=== PATIENT | female | born 1985 | race Caucasian/White ===

== ENCOUNTER 2021-03-26 16:00 | Inpatient (IN) | payer BC, SELFPAY ==
[2021-03-26] VITALS (13 sets, daily range): BP systolic 87–134; BP diastolic 54–83; PULSE 92–108; RESP 20; TEMP 36.2–36.6; BMI 53.3
--- NOTE | 2021-03-26 16:57 | LDADM ---
This patient, Shirley Mayfield, was admitted to Labor/Delivery/Recovery 102 on 03/26/21 at 16:00. Plans for labor, pain management and were discussed with patient. Patient/family oriented to hospital policies and general routines including ID bracelet, bed and alarms, visiting hours, pain management, procedures, bathroom and other care routines, personal items, smoking policy, room service/diet and guest tray routines, security routines, and visiting hours. Patient/Family are encouraged to report perceived risks to care and to ask questions if they do not understand what they are told or what they should do. See OBIX for further documentation.
[2021-03-26 16:58] LABS: Basophils Percent Auto 0.3 % (0.2-1.2); Eosinophils Absolute Auto 0.1 K/mm3 (0-0.3); Eosinophils Percent Auto 0.8 % (0-4.4); Hematocrit 35.5 % (37.0-47.0); Hemoglobin 11.4 g/dL (12.0-15.0); Immature Granulocyte Absolute 0.04 K/mm3 (0.00-0.031); Immature Granulocyte Percent A 0.4 % (0-0.5); Lymphocytes Absolute Auto 1.48 K/mm3 (0.9-3.2); Lymphocytes Percent Auto 13.6 % (18.3-44.2); Mean Corpuscular HGB Conc 32.1 g/dl (32-36); Mean Corpuscular Hemoglobin 28.1 pg (26-34); Mean Corpuscular Volume 87.7 fl (80-100); Mean Platelet Volume 8.7 fl (7.4-10.4); Monocytes Absolute Auto 0.5 K/mm3 (0.1-0.6); Monocytes Percent Auto 4.4 % (2.6-8.5); Neutrophils Absolute Auto 8.8 K/mm3 (1.3-6.7); Neutrophils Percent Auto 80.5 % (45.5-73.1); Platelet Count Result 347 k/mm3 (150-375); Red Blood Count 4.05 M/mm3 (4.2-5.4); Red Cell Distribution Width 15.4 % (11.5-14.5); White Blood Count 10.9 K/mm3 (4.5-10.0)
[2021-03-26] MEDS: DINOPROSTONE 10 MG VAG INSERT VAGINAL (17:10)
--- NOTE | 2021-03-26 18:34 | WPDANESEPP ---
Anes - Eval Pre Procedure Procedure: Labor epidural Date/Time: 03/26/21 18:34 Surgeon: Dorota Preop Diagnosis: Abd pain with contractions Pre Op Diagnosis: Induction of Labor Patient Data Age: 35 Gender: F Height: 1.73 m Weight: 159 kg Last Vital Signs Temp 97.2 F L 03/26/21 16:46 Pulse 95 03/26/21 18:30 Resp 20 03/26/21 16:46 BP 133/81 03/26/21 18:30 Allergies Allergy/AdvReac Type Severity Reaction Status Date / Time No Known Allergies Allergy Verified 05/19/19 13:39 Home Medications Medication Instructions Recorded Confirmed Type PNV cmb#95-ferrous fumarate-FA 1 tablet PO DAILY 05/19/19 03/26/21 History [] acetaminophen [Mapap 650 mg PO Q6H PRN #30 tablet 06/13/19 03/26/21 Rx (acetaminophen)] Laboratory Tests 03/26/21 03/26/21 03/26/21 16:51 16:51 16:51 WBC 10.9 K/mm3 H K/mm3 (4.5-10.0) RBC 4.05 M/mm3 L M/mm3 (4.2-5.4) Hgb 11.4 g/dL L g/dL (12.0-15.0) Hct 35.5 % L % (37.0-47.0) MCV 87.7 fl fl (80-100) MCH 28.1 pg pg (26-34) MCHC 32.1 g/dl g/dl (32-36) RDW 15.4 % H % (11.5-14.5) Plt Count 347 k/mm3 k/mm3 (150-375) MPV 8.7 fl fl (7.4-10.4) Immature Gran % (Auto) 0.4 % % (0-0.5) Neut % (Auto) 80.5 % H % (45.5-73.1) Lymph % (Auto) 13.6 % L % (18.3-44.2) [place] % (Auto) 4.4 % % (2.6-8.5) Eos % (Auto) 0.8 % % (0-4.4) Baso % (Auto) 0.3 % % (0.2-1.2) Lymph # (Auto) 1.48 K/mm3 K/mm3 (0.9-3.2) [place] # (Auto) 0.5 K/mm3 K/mm3 (0.1-0.6) Eos # (Auto) 0.1 K/mm3 K/mm3 (0-0.3) Baso # (Auto) 0.0 K/mm3 K/mm3 (0.0-0.1) Abs Immat Gran (auto) 0.04 K/mm3 H K/mm3 (0.00-0.031) Absolute Neuts (auto) 8.8 K/mm3 H K/mm3 (1.3-6.7) Absolute Nucleated RBC 0.0 K/mm3 K/mm3 (0.0-0.012) Nucleated RBC % 0.0 % % (0.0-0.2) RPR Pending Blood Type A Positive Antibody Screen Negative Patient hx anesthesia problems: none Family hx anesthesia problems: none Results Review: All pre-operative results and documents have been reviewed as part of the pre-operative evaluation. [facility] Past Medical History Medical History Morbid obesity with BMI of 50.0-59.9, adult and not yet delivered Family History Family History Other Unknown family medical history Social History Social History Smoking status: Never smoker Second hand tobacco smoke exposure: No Substance use: never Gender identity (if verbalized by the patient): Female Spiritual care concerns: No Exam Day of Procedure 03/26/21 18:34 Patient weight: super morbidly obese Airway: Mallampati scale class III Neurological: alert and oriented
[2021-03-27] VITALS (157 sets, daily range): BP systolic 93–143; BP diastolic 30–96; PULSE 37–132; RESP 18; TEMP 36.6–37.2; O2SAT 78–100
[2021-03-27] MEDS: LACTATED RINGERS 1,000 ML 125 ML IV CONT ×3 (05:29→15:21)
[2021-03-27] MEDS: OXYTOCIN 30 UNITS/NS 500 ML 30 UNITS/500 ML BAG IV CONT (05:29)
--- NOTE | 2021-03-27 07:39 | WPDOBADMIT ---
Obstetrics - Admit Note Admission Note: record reviewed. Additions to the history and/or subsequent changes in the physical findings follow. 35 y/o at 40 weeks here for induction of labor. GBS neg. Cervidil overnight, has been withdrawn. AVSS NST reactive TOCO: contractions irregularly ABD soft, nontender, gravid, vertex EXT nontender Cervix 3/50/-2. AROM with clear fluid. IUPC placed A: IUP at term, here for induction of labor. P: Oxytocin. Anticipate .
[2021-03-27 11:03] LABS: Rapid Plasma Reagin Non-Reactive (NonReactive)
--- NOTE | 2021-03-27 11:49 | PM.OBPNLAB ---
Pain Control Date/time seen: 03/27/21 11:49 Comments: Comfortable with epidural. Pelvic Exam Dilation (cm): 5 Effacement (%): 50 station: -1 Contractions Contraction frequency: 3 Status status: Category l Assessment and Plan Comments: Continue labor
--- NOTE | 2021-03-27 16:22 | PM.OBPRVD ---
OB - Delivery Note Procedure Delivery date: 03/27/21 Procedure: Induction of labor with NVSD Induction method: per pitocin protocol and per cervidil protocol Delivery augmentation: rupture of membranes and pitocin Delivery monitor: external FHT, external uterine and internal uterine Route of delivery: Laceration Description: Perineal - 2nd Degree Delivery repair: vicryl (3-0) Specimen: Yes (cord blood) Quantitative Blood Loss (ml): 220 Anesthesia type: Epidural Disposition: PACU Complications: None Narrative: 35 y/o at 40 weeks gestation who presented to the hospital for induction of labor. Cervidil was placed overnight and was withdrawn the next morning. Oxytocin was administered intravenously. Amniotomy was performed with return of clear fluid. She received an epidural for pain control. Her labor progressed and her cervix dilated completely. She pushed with good effort and delivered the 's head to the perineum, followed by the body. The nose and mouth were bulb suctioned. After a delay, the cord was clamped and cut. The infant was handed off the field. Cord blood was collected. The placenta delivered spontaneously and was grossly normal in appearance. The usual 3 vessel cord was noted. A second degree midline perineal laceration was sustained. This was reapproximated using 3 0 Vicryl in the usual layered fashion. Excellent hemostasis resulted as did excellent reapproximation of the normal anatomy. Needle and instrument counts were correct. The patient was taken to recovery room in stable condition. The went to the nursery in stable condition. I was present and scrubbed for the entire delivery. Baby Date of : 03/27/21 Time of : 16:01 Weeks of gestation at delivery: 40 gender: Female Weight (pounds): 9 Weight (ounces): 1 presentation: vertex position: Right Occiput Anterior Placenta delivery description: Spontaneous and Normal Configuration cord vessel description: 3 Vessels and Delayed Cord Clamping score one minute: 8 score five minutes: 9
--- NOTE | 2021-03-27 16:25 | PM.OBDSVD ---
DS: Admitting Diagnosis Discharge Date 03/28/21 Admitting Diagnosis IUP at 40 weeks gestation DS: Discharge Diagnosis Discharge Diagnosis (1) (normal spontaneous vaginal delivery): Code(s): O80 - Encounter for full-term uncomplicated delivery Status: Acute OB - DS: Summary OB Procedures : None OB Procedures Intrapartum: Spontaneous Vag Delivery OB Procedures: : None DS: Data Data Completed and Pending Labs on day of discharge: Labs from last 24 hours 03/26/21 03/26/21 03/26/21 16:51 16:51 16:51 WBC 10.9 H RBC 4.05 L Hgb 11.4 L Hct 35.5 L MCV 87.7 MCH 28.1 MCHC 32.1 RDW 15.4 H Plt Count 347 MPV 8.7 Immature Gran % (Auto) 0.4 Neut % (Auto) 80.5 H Lymph % (Auto) 13.6 L [place] % (Auto) 4.4 Eos % (Auto) 0.8 Baso % (Auto) 0.3 Lymph # (Auto) 1.48 [place] # (Auto) 0.5 Eos # (Auto) 0.1 Baso # (Auto) 0.0 Abs Immat Gran (auto) 0.04 H Absolute Neuts (auto) 8.8 H Absolute Nucleated RBC 0.0 Nucleated RBC % 0.0 RPR Non-reactive Blood Type A Positive Antibody Screen Negative Discharge Plan Discharge Attending physician on discharge: Carlos Raya Discharging Clinician: Carlos Raya Patient Disposition: Home, Self-Care Activity: pelvic rest Diet: regular Discharge Instructions: Call or return if temperature above 100.4? F, increased abdominal pain, increased vaginal bleeding or any new problems. Stand Alone Forms: General Discharge Information Follow-up/Referrals: Carlos Raya MD [Physician] - 6 Weeks Discharge Medications: New ibuprofen 600 mg tablet 600 mg PO Q6H PRN (Reason: cramps) Qty: 30 RF: 0 No Action PNV cmb#95-ferrous fumarate-FA [] 28 mg iron- 800 mcg Tablet 1 tablet PO DAILY RF: 0 acetaminophen [Mapap (acetaminophen)] 325 mg Tablet 650 mg PO Q6H PRN (Reason: Mild Pain (1-3) Or Headache) Qty: 30 RF: 0 Date of admission: 03/26/21 16:00 Primary Care Provider: PHYSICIAN,MODEL TECHNICIAN Admitting Provider: Carlos Raya Attending physician on admission: Carlos Raya Condition: Stable
[2021-03-27] MEDS: OXYTOCIN 30 UNITS/NS 500 ML 30 UNITS/500 ML BAG 125 UNITS IV CONT (16:32)
[2021-03-27] MEDS: WITCH HAZEL 40 PADS 1 PAD TOPICAL (18:30)
[2021-03-27] MEDS: BENZOCAINE 20% AER SPR (*SP) 56 GM CAN 1 SPRAY TOPICAL (18:30)
[2021-03-27] MEDS: IBUPROFEN 600 MG TABLET PO (22:06)
[2021-03-28 00:15] VITALS: BP 140/82; PULSE 98; RESP 18; TEMP 37.1; O2SAT 10
[2021-03-28] MEDS: IBUPROFEN 600 MG TABLET PO ×2 (03:56→10:45)
[2021-03-28 04:21] VITALS: BP 117/66; PULSE 80; RESP 20; TEMP 36.4; O2SAT 97
[2021-03-28 05:17] LABS: Hematocrit 34.1 % (37.0-47.0); Hemoglobin 11.1 g/dL (12.0-15.0)
[2021-03-28 07:50] VITALS: BP 128/76; PULSE 93; RESP 18; TEMP 36.5; O2SAT 98
[2021-03-28 12:20] VITALS: BP 124/76; PULSE 90; RESP 16; TEMP 36.5; O2SAT 99
--- NOTE | 2021-03-28 14:26 | PM.OBPNVD ---
OB - PN: Subj Subjective Date/time seen: 03/28/21 14:26 Narrative: Pain OK. Would like to go home. OB - PN: Obj Data Labs CBC & Chem 7: 03/28/21 03:48 Labs: Laboratory Results - last 24 hr 03/28/21 03:48 Hgb 11.1 L Hct 34.1 L OB - PN A/P Plan Comments: A: PPD#1, doing well. P: Home to f/u 6 weeks. Exam Psych: Other: AVSS ABD soft, nontender, fundus firm EXT nontender
--- NOTE | 2021-03-28 14:34 | WPDANLDPN2 ---
Anes-Prog Note L&D Date/Time: 03/28/21 14:34 Comfortable throughout: labor and delivery Neuraxial method: epidural Epidural/Spinal procedure site: clean & non-tender Neuro status: Neuro function grossly intact. Cardiovascular status: normal Respiratory status: normal Airway patency: baseline Mental status: baseline Post-Op hydration status: normal Vital Signs: Last Vital Signs Temp 36.5 C 03/28/21 12:20 Pulse 90 03/28/21 12:20 Resp 16 03/28/21 12:20 BP 124/76 03/28/21 12:20 Pulse Ox 99 03/28/21 12:20 Pain score (VAS): 0 I/O: Intake & Output 03/27/21 03/28/21 03/28/21 23:59 07:59 15:59 Intake Total 500 Output Total 270 Balance 230 Post-procedural complaints: none Patient feedback: Patient satisfied with anesthetic care.
--- NOTE | 2021-03-28 14:48 | PC.NURSE ---
1350 Breast feeding note; nurse visited with pt and she reports infant nursed about 1300 for 15 minutes. She had cuddled to breast, but baby was dressed in a sleeper and was sleeping. Nurse suggested mother get undressed to a diaper for feedings. Mother reports baby is nursing well; she is latching and breast feeding better than my son did, I think I already feel like my milk is coming in . Parents hoping to go home today after 24 hours; baby's feedings recorded seem appropriate; mother denies nipple pain and reports baby is able to latch easily and maintain latch for feeding. Reviewed importance of q 2-3h and on demand feedings, 8-12 a day; reviewed feeding log for monitoring feedings, and output per day of age, and importance of f/u visit after discharge and manager ambulatory visit by one week of age. Breast feeding pages flagged in pt's Mother Baby Guide for home reference, including LC contact information. Mother reports breast feeding her first baby for 8 months and reported no major problems. She had no questions for nurse at this time, and seemed confident with breast feeding.
--- NOTE | 2021-03-28 16:00 | PC.NURSE ---
Patient received instruction on viewing the discharge video Mother & Baby Care, The First Two Weeks . Patient was given the opportunity and encouraged to ask questions. Patient verbalized understanding of information shared and has been given the mother/baby guide for home reference.
== END 2021-03-28 20:00 | disposition home or self-care (01) | DRG 807 ==
LOC: ANHLDR 03-27 16:28 → ANHOB2 03-27 19:44
PROVIDERS: Admitting Provider Obstetrics & Gynecology; Visit Provider Obstetrics & Gynecology
DX: O99.214 Obesity complicating childbirth (principal); Z37.0 Single live birth; Z3A.40 40 weeks gestation of pregnancy; O70.1 Second degree perineal laceration during delivery; E66.01 Morbid (severe) obesity due to excess calories
CPT/HCPCS: 36415; 85014; 85018; 85025; 86592; 86850; 86900; 86901; A9270; J2590; J2795; J7120

== ENCOUNTER 2023-03-14 08:07 | Outpatient (CLI) | payer OTHER, SELFPAY ==
[2023-03-14 17:19] LABS: Basophils Absolute Auto 0.1 K/mm3 (0.0-0.1); Basophils Percent Auto 0.7 % (0.2-1.2); Eosinophils Absolute Auto 0.2 K/mm3 (0-0.3); Eosinophils Percent Auto 2.2 % (0-4.4); Hematocrit 42.5 % (37.0-47.0); Hemoglobin 13.5 g/dL (12.0-15.0); Immature Granulocyte Absolute 0.04 K/mm3 (0.00-0.031); Immature Granulocyte Percent A 0.4 % (0-0.5); Lymphocytes Absolute Auto 2.42 K/mm3 (0.9-3.2); Lymphocytes Percent Auto 26.7 % (18.3-44.2); Mean Corpuscular HGB Conc 31.8 g/dl (32-36); Mean Corpuscular Hemoglobin 28.5 pg (26-34); Mean Corpuscular Volume 89.9 fl (80-100); Monocytes Absolute Auto 0.5 K/mm3 (0.1-0.6); Monocytes Percent Auto 5.1 % (2.6-8.5); Neutrophils Absolute Auto 5.9 K/mm3 (1.3-6.7); Neutrophils Percent Auto 64.9 % (45.5-73.1); Platelet Count Result 408 k/mm3 (150-375); Red Blood Count 4.73 M/mm3 (4.2-5.4); Red Cell Distribution Width 13.8 % (11.5-14.5); White Blood Count 9.1 K/mm3 (4.5-10.0)
[2023-03-14 18:20] LABS: Thyroid Stimulating Hormone Reflex 0.816 uIU/mL (0.465-4.68)
[2023-03-14 19:19] LABS: Hemoglobin A1C 4.9 % (<5.7)
[2023-03-14 20:23] LABS: Alanine Aminotransferase 24 U/L (6-35); Albumin Level 4.2 g/dL (3.5-5.1); Alkaline Phosphatase 89 U/L (38-126); Anion Gap 7 mmol/L (8-16); Aspartate Amino Transferase 28 U/L (14-36); Bilirubin,Total 0.5 mg/dL (0.2-1.3); Blood Urea Nitrogen 15 mg/dL (7-17); Calcium 8.8 mg/dL (8.4-10.2); Carbon Dioxide 26 mmol/L (22-30); Chloride 105 mmol/L (98-107); Cholesterol 201 mg/dL (0-200); Estimated Glomerular Filt Rate > 60; Glucose 94 mg/dL (65-110); HDL Direct 30 mg/dL; Potassium 4.5 mmol/L (3.4-5.0); Sodium 138 mmol/L (137-145); Triglycerides 156 mg/dL (<150)
[2023-03-14 20:30] LABS: LDL Cholesterol Direct 135 mg/dL
== END 2023-03-14 08:08 | disposition home or self-care (01) ==
LOC: ANHGOSHLAB 08:08
PROVIDERS: Visit Provider Emergency Medicine
DX: E66.01 Morbid (severe) obesity due to excess calories (principal); Z68.42 Body mass index [BMI] 45.0-49.9, adult; Z83.3 Family history of diabetes mellitus
CPT/HCPCS: 36415; 80053; 80061; 83036; 84443; 85025

== ENCOUNTER 2023-11-21 08:19 | Outpatient (CLI) | payer OTHER, SELFPAY ==
[2023-11-21 14:16] LABS: Basophils Absolute Auto 0.1 K/mm3 (0.0-0.1); Basophils Percent Auto 0.6 % (0.2-1.2); Eosinophils Absolute Auto 0.2 K/mm3 (0-0.3); Eosinophils Percent Auto 1.9 % (0-4.4); Hematocrit 45.5 % (37.0-47.0); Hemoglobin 14.7 g/dL (12.0-15.0); Immature Granulocyte Absolute 0.04 K/mm3 (0.00-0.031); Immature Granulocyte Percent A 0.5 % (0-0.5); Lymphocytes Absolute Auto 2.28 K/mm3 (0.9-3.2); Lymphocytes Percent Auto 27.7 % (18.3-44.2); Mean Corpuscular HGB Conc 32.3 g/dl (32-36); Mean Corpuscular Hemoglobin 30.1 pg (26-34); Monocytes Absolute Auto 0.4 K/mm3 (0.1-0.6); Monocytes Percent Auto 5.2 % (2.6-8.5); Neutrophils Absolute Auto 5.3 K/mm3 (1.3-6.7); Neutrophils Percent Auto 64.1 % (45.5-73.1); Platelet Count Result 388 k/mm3 (150-375); Red Blood Count 4.89 M/mm3 (4.2-5.4); Red Cell Distribution Width 13.5 % (11.5-14.5); White Blood Count 8.2 K/mm3 (4.5-10.0)
[2023-11-21 15:35] LABS: Alanine Aminotransferase 20 U/L (6-35); Albumin Level 4.2 g/dL (3.5-5.1); Alkaline Phosphatase 84 U/L (38-126); Anion Gap 6 mmol/L (4-12); Aspartate Amino Transferase 65 U/L (14-36); Bilirubin,Total 0.6 mg/dL (0.2-1.3); Blood Urea Nitrogen 13 mg/dL (7-17); Carbon Dioxide 27 mmol/L (22-30); Chloride 106 mmol/L (98-107); Cholesterol 202 mg/dL (0-200); Estimated Glomerular Filt Rate > 60; Glucose 75 mg/dL (65-110); HDL Direct 35 mg/dL; Potassium 4.5 mmol/L (3.4-5.0); Sodium 139 mmol/L (137-145); Triglycerides 164 mg/dL (<150)
[2023-11-21 15:46] LABS: LDL Cholesterol Direct 132 mg/dL
[2023-11-21 17:11] LABS: Thyroid Stimulating Hormone Reflex 0.581 uIU/mL (0.465-4.68)
== END 2023-11-21 08:20 | disposition home or self-care (01) ==
LOC: ANHGOSHLAB 08:21
PROVIDERS: PCP Emergency Medicine; Visit Provider Emergency Medicine
DX: R63.4 Abnormal weight loss (principal); T50.905A Adverse effect of unspecified drugs, medicaments and biological substances, initial encounter; Z79.899 Other long term (current) drug therapy
CPT/HCPCS: 36415; 80053; 80061; 84443; 85025

== ENCOUNTER 2024-06-13 22:48 | Inpatient (IN) | payer OTHER, SELFPAY ==
--- NOTE | ~2024-06-13 | CT_ITS ---
EXAMINATION: CT abdomen pelvis w con DATE: 06/14/2024 03:04 INDICATION: Left upper quadrant abdominal pain. TECHNIQUE: Computed tomography (CT) of the abdomen and pelvis was performed with 100 mL Omnipaque 350 intravenous contrast. Automated exposure control and iterative reconstruction technique were employe d. The dose-length product was 1276.74 mGy-cm. COMPARISON: None. FINDINGS: The visualized portions of the lung bases demonstrate mild atelectasis. No pleural effusion . The heart size is normal. No pericardial effusion. The liver, gallbladder, spleen, adrenal glands, and right kidney are normal. There are cysts in left kidney measuring up to 8 mm. There is fat strand ing and small volume of fluid around the pancreas, consistent with acute interstitial pancreatitis. T here are no dilated loops of bowel. The appendix is normal. There are no pathologically enlarged lymp h nodes. There is physiologic fluid in the pelvis. There is moderate thoracic spondylosis and mild tamika mbar spondylosis. IMPRESSION: 1. Acute interstitial pancreatitis. Reviewed, dictated and finalized at location A. NING SPECIALIST
[2024-06-13 22:50] VITALS: BP 134/99; PULSE 92; RESP 20; TEMP 36.2; O2SAT 100
--- NOTE | 2024-06-13 23:31 | PC.NURSE ---
pt visitor to the triage desk stating, I am really concerned about my , I need to know at what point I need to scream for help and this is really serious. She is doubled over in a lot of pain right now . x2 RNs placed pt in a wheelchair and brought patient into triage bay to reassess vitals at this time. pt states pain has increased to a 10/10 abdominal pain. pt was able to ambulate into wheelchair after instructed to slowly stand. pt then began vomitting. pt visitor after vitals were reassessed asked if patient coudl drink water. this rn stated not at this time. pt visitor gave patient water after being instructed to wait and was explained the risks of giving water/ food at this time.
[2024-06-13 23:34] VITALS: BP 115/102; PULSE 84; RESP 16; TEMP 36.4; O2SAT 100
[2024-06-14] VITALS (18 sets, daily range): BP systolic 101–131; BP diastolic 28–80; PULSE 64–88; RESP 16–18; TEMP 35.5–36.7; O2SAT 96–100; BMI 38.2
[2024-06-14] MEDS: ONDANSETRON INJ 4 MG/2 ML VIAL IV PUSH (02:25)
[2024-06-14] MEDS: MORPHINE SULFATE (*CRX) 4 MG/ML INJ IV PUSH ×2 (02:25→04:58)
[2024-06-14 02:26] LABS: Basophils Percent Auto 0.3 % (0.2-1.2); Eosinophils Absolute Auto 0.1 K/mm3 (0-0.3); Eosinophils Percent Auto 0.6 % (0-4.4); Hematocrit 45.3 % (37.0-47.0); Hemoglobin 14.8 g/dL (12.0-15.0); Immature Granulocyte Absolute 0.04 K/mm3 (0.00-0.031); Immature Granulocyte Percent A 0.3 % (0-0.5); Lymphocytes Absolute Auto 0.83 K/mm3 (0.9-3.2); Lymphocytes Percent Auto 6.6 % (18.3-44.2); Mean Corpuscular HGB Conc 32.7 g/dl (32-36); Mean Corpuscular Hemoglobin 29.5 pg (26-34); Mean Corpuscular Volume 90.4 fl (80-100); Monocytes Absolute Auto 0.4 K/mm3 (0.1-0.6); Monocytes Percent Auto 3.3 % (2.6-8.5); Neutrophils Absolute Auto 11.1 K/mm3 (1.3-6.7); Neutrophils Percent Auto 88.9 % (45.5-73.1); Platelet Count Result 345 k/mm3 (150-375); Red Blood Count 5.01 M/mm3 (4.2-5.4); Red Cell Distribution Width 13.2 % (11.5-14.5); White Blood Count 12.5 K/mm3 (4.5-10.0)
[2024-06-14] MEDS: SODIUM CHLORIDE 0.9% IV 1,000 ML 999 ML IV CONT ×2 (02:26→04:26)
[2024-06-14 02:38] LABS: Alanine Aminotransferase 532 U/L (6-35); Albumin Level 4.4 g/dL (3.5-5.1); Alkaline Phosphatase 340 U/L (38-126); Anion Gap 6 mmol/L (4-12); Aspartate Amino Transferase 257 U/L (14-36); Bilirubin Direct 1.3 mg/dL (0-0.3); Bilirubin,Total 3.9 mg/dL (0.2-1.3); Blood Urea Nitrogen 11 mg/dL (7-17); Carbon Dioxide 26 mmol/L (22-30); Chloride 106 mmol/L (98-107); Estimated CRCL calculation 126 ml/min; Estimated Glomerular Filt Rate > 60; Glucose 128 mg/dL (65-110); Sodium 138 mmol/L (137-145)
[2024-06-14 02:47] LABS: SPREG INTERNAL CONTROL Positive; Serum Qual hCG Negative
--- NOTE | 2024-06-14 03:56 | ED_ITS ---
HPI - Abdominal Pain General Chief Complaint: Abdominal Pain Stated Complaint: abdominal pain Time Seen by Provider: 06/14/24 01:31 History of Present Illness HPI narrative: Patient is a 38-year-old female who presents to the emergency department this evening complaining of left upper quadrant abdominal pain radiating to her back. Patient admits that she has been on Waygovie since July and has had intermittent and similar symptoms since then. She is currently being tapered off of this medication secondary to these symptoms. Patient admits that the symptoms started on Friday and have been progressively getting worse. Upon arrival to the emergency department patient states that her pain was a 10/10, by the time patient gets back to a room she states that her pain is now manageable. Admits to nausea and vomiting episodes. Denies any dysuria or hematuria, any fevers or chills. No additional symptoms or concerns at this time. Related Data Home Medications ?Medication ?Instructions ?Recorded ?Confirmed ?Last Taken ?Type multivitamin 1 tablet PO DAILY 03/07/23 05/19/24 Unknown History Allergies Allergy/AdvReac Type Severity Reaction Status Date / Time No Known Allergies Allergy Verified 06/13/24 22:49 Review of Systems 2 Review of Systems: All systems are reviewed and are negative unless stated otherwise in the HPI. [facility] Past Medical History Medical History Morbid obesity with BMI of 50.0-59.9, adult and not yet delivered Surgical History Surgical History [place] teeth extracted August 2022 Family History Family History Father Alcoholism Lung cancer Sibling Depression Anxiety Colon polyp Other Unknown family medical history Social History Social History Smoking status: Never smoker Second hand tobacco smoke exposure: No Alcohol intake: current Alcohol use details: social, 2-3 per month Substance use: never Substance use type: does not use Lack of Transportation: No Lack of Food: Never True Current Housing: I Have Housing Concerned About Future Housing: No Difficulty Paying Gas/Electric Bills: No Difficulty Paying for Meds: No Currently Unemployed: No Education: Bachelor's Degree Difficulty w/ Childcare or Family Care: No Gender identity (if verbalized by the patient): Female Spiritual care concerns: No Exam 2 Narrative: General: Alert, awake, afebrile, in no acute distress. HEENT: PERRL, no rhinorrhea, no post nasal drip, oropharynx clear. Neck: Trachea midline, no JVD, no lymphadenopathy. Cardiovascular: Regular rate and rhythm, no murmurs, rubs or gallops, no peripheral edema. Respiratory: Clear to auscultation bilaterally, no tachypnea, no wheezing, no rhonchi, no rubs, no respiratory distress. Abdomen: Soft, tenderness to palpation over the left upper quadrant, nondistended, no rebound, no guarding, no peritoneal signs. Musculoskeletal: No joint swelling or deformity, normal muscle tone. Skin: No rashes or petechia, no signs of infection. Psychiatric: Alert and oriented, normal behavior and judgment for situation. Neurological: Alert and oriented to person, place, and time. Follows all commands. No focal deficits, speech is clear and fluent. Course Vital Signs Vital signs: Vital Signs Temperature 97.2 F L 06/13/24 22:50 Pulse Rate 92 06/13/24 22:50 Respiratory Rate 20 06/13/24 22:50 Blood Pressure 134/99 H 06/13/24 22:50 Pulse Oximetry 100 06/13/24 22:50 Oxygen Delivery Room Air 06/13/24 22:50 Temperature 97.6 F 06/13/24 23:34 Pulse Rate 84 06/13/24 23:34 Respiratory Rate 16 06/13/24 23:34 Blood Pressure 115/102 H 06/13/24 23:34 Pulse Oximetry 100 06/13/24 23:34 Oxygen Delivery Room Air 06/13/24 22:50 MDM - Abdominal Pain MDM Narrative Medical decision making narrative: The patient was evaluated by myself in the emergency department. History is obtained from patient who is an independent historian and physical exam was performed. External medical records were reviewed at this time. IV was established and pertinent tests were ordered. Patient was administered 4 mg of IV morphine for pain and 4 mg of IV Zofran for nausea and 1 L IV fluid bolus with normal saline. Laboratory results obtained revealing leukocytosis of 12.5, transaminitis with an AST of 257 and an ALT of 532, total bilirubin of 3.9, direct bilirubin 1.3. blood works obtained in October revealed normal liver enzymes and bilirubin in comparison. At this time patient was administered a 2nd IV fluid bolus with normal saline and continued on maintenance fluids with LR rate of 150 cc/hour. urinalysis revealed urinary tract infection with 3+ ketones. Lipase 23,138. At this time patient was administered 1 g of IV Rocephin. Imaging studies obtained included CT abdomen and pelvis with IV contrast which was independently interpreted by me revealing acute interstitial edematous pancreatitis, which is pending final radiology interpretation. At this time, patient was informed of these findings at bedside. Patient continues to have some pain stating that the morphine did initially help but has not completely resolved her pain. At this time an additional 4 mg of IV morphine was ordered. Differential diagnosis considerations include acute pancreatitis, peptic ulcer disease, gastritis, cholecystitis. Comorbidities impacting this visit include current Waygovie use. I have evaluated and discussed social determinants of health with the patient that could potentially impact subsequent diagnosis and treatment plans. On repeat assessment of the patient, reevaluation revealed that the patient is doing well and is in no acute distress. Patient symptoms have improved since she arrived to our emergency department. Repeat vital signs were all reviewed and noted to be stable. Differential diagnosis and treatment plan were discussed with the patient at bedside. Patient agrees with discussion and after shared medical decision making agrees with admission. All questions were answered to the patient's satisfaction. Case was discussed with the on-call hospitalist Dr. Wilson at 0455 and she accepted admission. Lab Data 06/14/24 02:16 06/14/24 02:16 Labs: Lab Results 06/14/24 06/14/24 Range/Units 02:16 03:56 WBC 12.5 H (4.5-10.0) K/mm3 RBC 5.01 (4.2-5.4) M/mm3 Hgb 14.8 (12.0-15.0) g/dL Hct 45.3 (37.0-47.0) % MCV 90.4 (80-100) fl MCH 29.5 (26-34) pg MCHC 32.7 (32-36) g/dl RDW 13.2 (11.5-14.5) % Plt Count 345 (150-375) k/mm3 MPV 9.0 (7.4-10.4) fl Immature Gran % (Auto) 0.3 (0-0.5) % Neut % (Auto) 88.9 H (45.5-73.1) % Lymph % (Auto) 6.6 L (18.3-44.2) % [place] % (Auto) 3.3 (2.6-8.5) % Eos % (Auto) 0.6 (0-4.4) % Baso % (Auto) 0.3 (0.2-1.2) % Lymph # (Auto) 0.83 L (0.9-3.2) K/mm3 [place] # (Auto) 0.4 (0.1-0.6) K/mm3 Eos # (Auto) 0.1 (0-0.3) K/mm3 Baso # (Auto) 0.0 (0.0-0.1) K/mm3 Abs Immat Gran (auto) 0.04 H (0.00-0.031) K/mm3 Absolute Neuts (auto) 11.1 H (1.3-6.7) K/mm3 Absolute Nucleated RBC 0.000 (0.0-0.012) K/mm3 Nucleated RBC % 0.0 (0.0-0.2) % Sodium 138 (137-145) mmol/L Potassium 4.0 (3.4-5.0) mmol/L Chloride 106 (98-107) mmol/L Carbon Dioxide 26 (22-30) mmol/L Anion Gap 6 (4-12) mmol/L BUN 11 (7-17) mg/dL Creatinine 0.70 (0.7-1.0) mg/dL Estim Creat Clear Calc 126 ml/min Estimated GFR > 60 (59 - ) Glucose 128 H (65-110) mg/dL Calcium 9.0 (8.4-10.2) mg/dL Magnesium 2.0 (1.6-2.3) mg/dL Total Bilirubin 3.9 H (0.2-1.3) mg/dL Direct Bilirubin 1.3 H (0-0.3) mg/dL AST 257 H (14-36) U/L ALT 532 H (6-35) U/L Alkaline Phosphatase 340 H (38-126) U/L Total Protein 8.0 (6.3-8.2) g/dL Albumin 4.4 (3.5-5.1) g/dL Lipase 47967 H (23-300) U/L Serum HCG, Qual Negative Urine Color Dark yellow (Yellow) Urine Appearance Turbid H (Clear) Urine pH 5.0 (5.0-9.0) Ur Specific [place] 1.032 (1.001-1.035) Urine Protein 2+ H (Negative) mg/dL Urine Glucose (UA) Negative (Negative) mg/dL Urine Ketones 3+ H (Negative) mg/dL Ur Blood (Man) 3+ H (Negative) Urine Nitrate Negative (Negative) Urine Bilirubin 2+ H (Negative) Urine Urobilinogen 1.0 (<2.0) mg/dL Leukocyte Esterase Rfl 1+ H (Negative) ELTY/UL Urine RBC >100 H (0-2) /hpf Urine WBC 11-20 H (0-3) /hpf Ur Squamous Epith Cells Occasional (Few) /hpf Urine Bacteria Rare /hpf Urine Casts 0-2 Discharge Plan Discharge Clinical Impression: Acute pancreatitis, Acute vomiting, Transaminitis, Hyperbilirubinemia, Acute dehydration, UTI (urinary tract infection) Patient Disposition: Still a Patient Condition: Improved Instructions: Antibiotic Form Patient Language: Vietnamese Prescriptions: No Action multivitamin Tablet 1 tablet PO DAILY Wegovy 1 mg/0.5 mL pen injector 1 mg subcut WEEKLY Qty: 2 0RF polyethylene glycol 3350 [Miralax] 17 gram/dose powder 17 g PO DAILY PRN (Reason: constipation) Qty: 119 0RF docusate calcium 240 mg capsule 240 mg PO DAILY PRN (Reason: stool softener) Qty: 30 0RF omeprazole 20 mg capsule,delayed release(DR/EC) 20 mg PO DAILY Qty: 90 1RF Follow-up/Referrals: Gauri Dale APRN [Primary Care Provider] - Time of Disposition: 04:48
[2024-06-14 04:13] LABS: Lipase 23138 U/L (23-300)
[2024-06-14 04:25] LABS: Add Urine Microscopic? YES; Appearance Urine Turbid (Clear); Bacteria Urine Rare /hpf; Bilirubin Urine 2+ (Negative); Blood Urine 3+ (Negative); Color Urine Dark Yellow (Yellow); Glucose Urine UA Negative (Negative); Ketones Urine 3+ mg/dL (Negative); Leukocyte Esterase Ur 1+ LEU/UL (Negative); Nitrate Urine Negative (Negative); Non Pathogenic Casts 0-2; Protein Urine 2+ mg/dL (Negative); RBC Urine >100 /hpf (0-2); Specific Grav Ur 1.032 (1.001-1.035); Squamous Epithelial Cell Urine Occasional /hpf (Few)
[2024-06-14] MEDS: LACTATED RINGERS 1,000 ML 150 ML IV CONT (04:57)
--- NOTE | 2024-06-14 09:33 | P.HP_ITS ---
H&P: HPI History of Present Illness Date/Time: 06/14/24 09:33 Chief Complaint: ABD Pain Narrative: Patient is a 38-year-old female who presented to the emergency department for abdominal pain. Patient reported pain was a 10 out 10 prior to arrival to the emergency. patient with no significant past medical history other than obesity however she did report she was recently taking will go away since July but had episodes of abdominal pain but nothing this worse so her primary care physician was weaning her off. CT scan was showing interstitial pancreatitis, lipase >15955 and elevated liver enzymes and T bili all other labs and vitals unremarkable. patient was admitted to the medical unit for further evaluation and treatment of acute pancreatitis likely secondary to GLP 1 administration. P atient reported Atypical chest pain, N/V prior to arrival but since has resolved with IV fluids and pain management. Currently, she denies SOB,CP, N/V and is tolerating full liquid diet but still has moderate ABD pain. Review of Systems Review of Systems: All systems reviewed & are unremarkable except as noted in HPI and below PMFSH Past Medical History Medical History (Updated 06/14/24 @ 09:37 by Susu Russell APRN) Morbid obesity with BMI of 50.0-59.9, adult and not yet delivered Surgical History Surgical History [place] teeth extracted August 2022 Family History Family History Father Alcoholism Lung cancer Sibling Depression Anxiety Colon polyp Other Unknown family medical history Social History Social History Smoking status: Never smoker Second hand tobacco smoke exposure: No Alcohol intake: current Alcohol use details: social, 2-3 per month Substance use: never Substance use type: does not use Do You Feel Safe in your Home?: Yes Lack of Transportation: No Lack of Food: Never True Current Housing: I Have Housing Concerned About Future Housing: No Difficulty Paying Gas/Electric Bills: No Difficulty Paying for Meds: No Currently Unemployed: No Education: Bachelor's Degree Difficulty w/ Childcare or Family Care: No Gender identity (if verbalized by the patient): Female Spiritual care concerns: No Meds Home Medications and Allergies Home Medications ?Medication ?Instructions ?Recorded ?Confirmed ?Type multivitamin 1 tablet PO DAILY 03/07/23 06/14/24 History omeprazole 20 mg capsule,delayed 20 mg PO DAILY #90 caps 04/16/24 06/14/24 Rx release Wegovy 1 mg/0.5 mL subcutaneous 1 mg (0.5 mL) subcut WEEKLY #2 mL 05/19/24 06/14/24 Rx pen injector (semaglutide (weight loss)) docusate calcium 240 mg capsule 240 mg PO DAILY PRN stool softener 05/19/24 06/14/24 Rx #30 caps polyethylene glycol 3350 17 17 g PO DAILY PRN constipation 05/19/24 06/14/24 Rx gram/dose oral powder (Miralax) #119 grams Allergies Allergy/AdvReac Type Severity Reaction Status Date / Time No Known Allergies Allergy Verified 06/13/24 22:49 Vital Signs Vital Signs - 24 hr 06/13/24 22:50 06/13/24 23:34 06/14/24 02:37 Temperature 97.2 F L 97.6 F Pulse Rate 92 84 Respiratory Rate 20 16 Blood Pressure 134/99 H 115/102 H Pulse Oximetry 100 100 98 Oxygen Delivery Room Air 06/14/24 03:10 06/14/24 03:20 06/14/24 04:24 Temperature Pulse Rate Respiratory Rate Blood Pressure Pulse Oximetry 100 100 97 Oxygen Delivery 06/14/24 05:29 06/14/24 05:30 06/14/24 05:31 Temperature Pulse Rate Respiratory Rate Blood Pressure 115/72 Pulse Oximetry 100 100 100 Oxygen Delivery 06/14/24 05:45 06/14/24 05:46 06/14/24 05:47 Temperature Pulse Rate Respiratory Rate Blood Pressure 115/67 Pulse Oximetry 98 99 98 Oxygen Delivery 06/14/24 06:10 06/14/24 06:15 06/14/24 06:16 Temperature Pulse Rate Respiratory Rate Blood Pressure 117/72 Pulse Oximetry 100 100 100 Oxygen Delivery 06/14/24 06:54 06/14/24 08:00 Temperature 97.6 F 98.1 F Pulse Rate 77 88 Respiratory Rate 18 18 Blood Pressure 125/74 105/28 L Pulse Oximetry 100 96 Oxygen Delivery Exam Narrative: * GENERAL: Alert and oriented x 3. No acute distress. * EYES: EOMI. No scleral icterus. PERRLA. * HEENT: Moist mucous membranes. * LUNGS: Clear to auscultation bilaterally. No accessory muscle use. * CARDIOVASCULAR: Regular rate and rhythm. No murmur. No JVD. S1-S2 * ABDOMEN: Soft, non tenderness and non-distended. No palpable masses. * EXTREMITIES: No edema. Non-tender * SKIN: No rashes or lesions. Skin warm, dry. * NEUROLOGIC: No focal neurological deficits. CN II-XII grossly intact * PSYCHIATRIC: Appropriate mood and affect. Good judgement and insight. No visual or auditory hallucinations. No suicidal or homicidal ideation. H&P: Results Labs Labs: Short CBC 06/14/24 Range/Units 02:16 WBC 12.5 H (4.5-10.0) K/mm3 Hgb 14.8 (12.0-15.0) g/dL Hct 45.3 (37.0-47.0) % Plt Count 345 (150-375) k/mm3 [facility] 06/14/24 02:16 Sodium 138 Potassium 4.0 Chloride 106 Carbon Dioxide 26 BUN 11 Creatinine 0.70 Glucose 128 H Calcium 9.0 Liver Function 06/14/24 Range/Units 02:16 Total Bilirubin 3.9 H (0.2-1.3) mg/dL Direct Bilirubin 1.3 H (0-0.3) mg/dL AST 257 H (14-36) U/L ALT 532 H (6-35) U/L Alkaline Phosphatase 340 H (38-126) U/L Albumin 4.4 (3.5-5.1) g/dL Urine 06/14/24 Range/Units 03:56 Urine Color Dark yellow (Yellow) Urine Appearance Turbid H (Clear) Urine pH 5.0 (5.0-9.0) Ur Specific [place] 1.032 (1.001-1.035) Urine Protein 2+ H (Negative) mg/dL Urine Glucose (UA) Negative (Negative) mg/dL Imaging CT scan - abdomen: Radiologist's impression: EXAMINATION: CT abdomen pelvis w con DATE: 06/14/2024 03:04 INDICATION: Left upper quadrant abdominal pain. TECHNIQUE: Computed tomography (CT) of the abdomen and pelvis was performed with 100 mL Omnipaque 350 intravenous contrast. Automated exposure control and iterative reconstruction technique were employed. The dose-length product was 1276.74 mGy-cm. COMPARISON: None. FINDINGS: The visualized portions of the lung bases demonstrate mild atelectasis. No pleural effusion. The heart size is normal. No pericardial effusion. The liver, gallbladder, spleen, adrenal glands, and right kidney are normal. There are cysts in left kidney measuring up to 8 mm. There is fat stranding and small volume of fluid around the pancreas, consistent with acute interstitial pancreatitis. There are no dilated loops of bowel. The appendix is normal. There are no pathologically enlarged lymph nodes. There is physiologic fluid in the pelvis. There is moderate thoracic spondylosis and mild lumbar spondylosis. IMPRESSION: 1. Acute interstitial pancreatitis. Assessment and Plan Assessment and plan (1) Acute pancreatitis: Code(s): K85.90 - Acute pancreatitis without necrosis or infection, unspecified Status: Acute Assessment and Plan: patient with evidence acute pancreatitis due to lipase and CT abdomen showing interstitial pancreatitis likely secondary to the use of her GLP 1 * aggressive IV hydration * pain management * trend lipase * trend liver enzymes and T bili * will start on full liquid diet and advance as tolerated * recommended discontinuation of Wegovy * antiemetics * PPI (2) Hyperbilirubinemia: Code(s): E80.6 - Other disorders of bilirubin metabolism Status: Acute Assessment and Plan: * likely secondary to acute pancreatitis * will trend * CT abdomen showing normal liver (3) Transaminitis: Code(s): R74.01 - Elevation of levels of liver transaminase levels Status: Acute Assessment and Plan: SEE ABOVE (4) Morbid obesity with BMI of 50.0-59.9, adult: Code(s): E66.01 - Morbid (severe) obesity due to excess calories; Z68.43 - Body mass index [BMI] 50.0-59.9, adult Status: Acute Assessment and Plan: * encourage increased on physical activity and lifestyle modifications * Stress monitoring * encourage outpatient weight loss clinic * BMI . * Diet exercise counseling done. Plan Code status: Full code per patient DVT prophylaxis: Lovenox Stress ulcer prophylaxis: Protonix 40 daily PT/OT notes: ambulatory Disposition: patient was admitted to the medical unit for further evaluation and treatment of acute pancreatitis will continue with aggressive IV hydration and pain management monitor lipase and liver enzymes for downtrend patient can discharge to home when tolerating oral intake and pain is resolving. Quality VTE Prophylaxis VTE prophylaxis: pharmacologic ordered -Patient's previous records reviewed on admission -ER notes reviewed in detail on admission -discussed all findings and current treatment plan with patient/Family/POA -Consultations reviewed for recommendations -Patient's disposition for safe discharge discussed with case resolution specialist Dictation performed by [employer] direct speech recognition software, therefore glycerine plant operator variants and typographical errors may occur. Hospitalist JONATAN Advance Care Plan I have confirmed that the patient's Advanced Care Plan is present, code status is documented, or surrogate decision maker is listed in patient medical record.: Yes Medication Reconciliation I have utilized all available resources to obtain, update and review the patients current medications (includes all prescriptions, OTC, herbals, cannabis, and nutritional supplements).: Yes The patient is not eligible for med reconciliation; the patient is in a emergent medical situation where delaying treatment would jeopardize the patients health.: No
[2024-06-14] MEDS: PANTOPRAZOLE 40 MG TABLET PO (10:20)
[2024-06-14] MEDS: HYDROcodone/acetaminophen (*CRX) 5-325 MG TABLET 1 TAB PO (10:21)
[2024-06-14 10:51] LABS: Basophils Percent Auto 0.3 % (0.2-1.2); Eosinophils Absolute Auto 0.1 K/mm3 (0-0.3); Eosinophils Percent Auto 1.3 % (0-4.4); Hematocrit 40.7 % (37.0-47.0); Hemoglobin 13.4 g/dL (12.0-15.0); Immature Granulocyte Absolute 0.03 K/mm3 (0.00-0.031); Immature Granulocyte Percent A 0.3 % (0-0.5); Lymphocytes Absolute Auto 1.69 K/mm3 (0.9-3.2); Lymphocytes Percent Auto 18.1 % (18.3-44.2); Mean Corpuscular HGB Conc 32.9 g/dl (32-36); Mean Corpuscular Hemoglobin 29.9 pg (26-34); Mean Corpuscular Volume 90.8 fl (80-100); Mean Platelet Volume 8.7 fl (7.4-10.4); Monocytes Absolute Auto 0.5 K/mm3 (0.1-0.6); Monocytes Percent Auto 4.9 % (2.6-8.5); Neutrophils Percent Auto 75.1 % (45.5-73.1); Platelet Count Result 319 k/mm3 (150-375); Red Blood Count 4.48 M/mm3 (4.2-5.4); Red Cell Distribution Width 13.3 % (11.5-14.5); White Blood Count 9.3 K/mm3 (4.5-10.0)
[2024-06-14 11:16] LABS: Alanine Aminotransferase 359 U/L (6-35); Albumin Level 3.4 g/dL (3.5-5.1); Alkaline Phosphatase 256 U/L (38-126); Anion Gap 3 mmol/L (4-12); Aspartate Amino Transferase 115 U/L (14-36); Bilirubin,Total 1.2 mg/dL (0.2-1.3); Blood Urea Nitrogen 8 mg/dL (7-17); Calcium 8.1 mg/dL (8.4-10.2); Carbon Dioxide 23 mmol/L (22-30); Chloride 110 mmol/L (98-107); Estimated CRCL calculation 172 ml/min; Estimated Glomerular Filt Rate > 60; Glucose 128 mg/dL (65-110); Magnesium 1.9 mg/dL (1.6-2.3); Potassium 3.5 mmol/L (3.4-5.0); Sodium 136 mmol/L (137-145)
[2024-06-14 11:38] LABS: Lipase 5760 U/L (23-300)
[2024-06-15 05:06] VITALS: BP 128/92; PULSE 86; RESP 18; TEMP 36.3; O2SAT 98
[2024-06-15 06:42] LABS: Basophils Percent Auto 0.3 % (0.2-1.2); Eosinophils Absolute Auto 0.3 K/mm3 (0-0.3); Eosinophils Percent Auto 4.4 % (0-4.4); Hematocrit 41.9 % (37.0-47.0); Hemoglobin 13.4 g/dL (12.0-15.0); Immature Granulocyte Absolute 0.02 K/mm3 (0.00-0.031); Immature Granulocyte Percent A 0.3 % (0-0.5); Lymphocytes Absolute Auto 1.65 K/mm3 (0.9-3.2); Lymphocytes Percent Auto 22.2 % (18.3-44.2); Mean Corpuscular Hemoglobin 29.6 pg (26-34); Mean Corpuscular Volume 92.7 fl (80-100); Mean Platelet Volume 8.9 fl (7.4-10.4); Monocytes Absolute Auto 0.4 K/mm3 (0.1-0.6); Monocytes Percent Auto 5.2 % (2.6-8.5); Neutrophils Percent Auto 67.6 % (45.5-73.1); Platelet Count Result 313 k/mm3 (150-375); Red Blood Count 4.52 M/mm3 (4.2-5.4); Red Cell Distribution Width 13.4 % (11.5-14.5); White Blood Count 7.4 K/mm3 (4.5-10.0)
[2024-06-15 07:48] LABS: Alanine Aminotransferase 276 U/L (6-35); Albumin Level 3.7 g/dL (3.5-5.1); Alkaline Phosphatase 227 U/L (38-126); Anion Gap 3 mmol/L (4-12); Aspartate Amino Transferase 57 U/L (14-36); Bilirubin,Total 1.1 mg/dL (0.2-1.3); Blood Urea Nitrogen 7 mg/dL (7-17); Calcium 8.5 mg/dL (8.4-10.2); Carbon Dioxide 27 mmol/L (22-30); Chloride 108 mmol/L (98-107); Estimated CRCL calculation 146 ml/min; Estimated Glomerular Filt Rate > 60; Glucose 85 mg/dL (65-110); Lipase 1394 U/L (23-300); Sodium 138 mmol/L (137-145)
[2024-06-15] MEDS: PANTOPRAZOLE 40 MG TABLET PO (08:56)
[2024-06-15] MEDS: ENOXAPARIN 40 MG/0.4 ML SYRINGE SUB-Q (08:56)
--- NOTE | 2024-06-15 09:43 | P.DS_ITS ---
DS: Admitting Diagnosis Discharge Date 06/15/24 Admitting Diagnosis acute pancreatitis DS: Discharge Diagnosis Discharge Diagnosis (1) Acute pancreatitis: Code(s): K85.90 - Acute pancreatitis without necrosis or infection, unspecified Status: Acute Assessment and Plan: * continue with oral hydration * advance diet as tolerated * discontinue use of GLP 1 (2) Hyperbilirubinemia: Code(s): E80.6 - Other disorders of bilirubin metabolism Status: Acute Assessment and Plan: * secondary to acute pancreatitis improving (3) Transaminitis: Code(s): R74.01 - Elevation of levels of liver transaminase levels Status: Acute Assessment and Plan: SEE ABOVE (4) Morbid obesity with BMI of 50.0-59.9, adult: Code(s): E66.01 - Morbid (severe) obesity due to excess calories; Z68.43 - Body mass index [BMI] 50.0-59.9, adult Status: Acute Assessment and Plan: * encourage increased on physical activity and lifestyle modifications * Stress monitoring * encourage outpatient weight loss clinic * BMI . * Diet exercise counseling done. Plan Disposition: patient discharged home DS: Summary Hospital Course Reason for hospitalization: acute pancreatitis Hospital Course: Patient is a 38-year-old female who presented to the emergency department for abdominal pain. Patient reported pain was a 10 out 10 prior to arrival to the emergency. patient with no significant past medical history other than obesity however she did report she was recently taking will go away since July but had episodes of abdominal pain but nothing this worse so her primary care physician was weaning her off. CT scan was showing interstitial pancreatitis, lipase >70913 and elevated liver enzymes and T bili all other labs and vitals unremarkable. patient was admitted to the medical unit for further evaluation and treatment of acute pancreatitis likely secondary to GLP 1 administration. Patient reported Atypical chest pain, N/V prior to arrival but since has resolved with IV fluids and pain management. Currently, she denies SOB,CP, N/V and is tolerating full liquid diet but still has moderate ABD pain. continued with aggressive IV hydration as well as pain management began to advance patient's diet as tolerated and monitor lipase levels all of which trended down with treatment patient reported overall improvement to abdominal tenderness and had no further nausea or vomiting. Patient seen and assessed on day of discharge with overall improvement to symptoms and in no acute distress. She was encouraged to discontinue the use of her GLP 1 drug at this time and to have follow-up with her primary care physician I encouraged oral hydration and to advance her diet as tolerated. patient agreed and acknowledged with discharge plan patient was discharged to home Status at Discharge Functional status at discharge: independent ambulation Time Spent with Patient Time attestation: Total time spent providing and/or coordinating discharge services: Time spent: Greater than 30 minutes Exam Narrative: * GENERAL: Alert and oriented x 3. No acute distress. * EYES: EOMI. No scleral icterus. PERRLA. * HEENT: Moist mucous membranes. * LUNGS: Clear to auscultation bilaterally. No accessory muscle use. * CARDIOVASCULAR: Regular rate and rhythm. No murmur. No JVD. S1-S2 * ABDOMEN: Soft, scant tenderness and non-distended. No palpable masses. * EXTREMITIES: No edema. Non-tender * SKIN: No rashes or lesions. Skin warm, dry. * NEUROLOGIC: No focal neurological deficits. CN II-XII grossly intact * PSYCHIATRIC: Appropriate mood and affect. Good judgement and insight. No visual or auditory hallucinations. No suicidal or homicidal ideation. DS: Data Data Completed and Pending Labs on day of discharge: Labs from last 24 hours 06/15/24 06/14/24 06:09 10:34 WBC 7.4 9.3 RBC 4.52 4.48 Hgb 13.4 13.4 Hct 41.9 40.7 MCV 92.7 90.8 MCH 29.6 29.9 MCHC 32.0 32.9 RDW 13.4 13.3 Plt Count 313 319 MPV 8.9 8.7 Immature Gran % (Auto) 0.3 0.3 Neut % (Auto) 67.6 75.1 H Lymph % (Auto) 22.2 18.1 L Moca % (Auto) 5.2 4.9 Eos % (Auto) 4.4 1.3 Baso % (Auto) 0.3 0.3 Lymph # (Auto) 1.65 1.69 Moca # (Auto) 0.4 0.5 Eos # (Auto) 0.3 0.1 Baso # (Auto) 0.0 0.0 Abs Immat Gran (auto) 0.02 0.03 Absolute Neuts (auto) 5.0 7.0 H Absolute Nucleated RBC 0.000 0.000 Nucleated RBC % 0.0 0.0 Sodium 138 136 L Potassium 4.0 3.5 Chloride 108 H 110 H Carbon Dioxide 27 23 Anion Gap 3 L 3 L BUN 7 8 Creatinine 0.60 L 0.50 L Estim Creat Clear Calc 146 172 Estimated GFR > 60 > 60 Glucose 85 128 H Calcium 8.5 8.1 L Magnesium 1.9 Total Bilirubin 1.1 1.2 AST 57 H 115 H ALT 276 H 359 H Alkaline Phosphatase 227 H 256 H Total Protein 7.0 6.0 L Albumin 3.7 3.4 L Lipase 1394 H 5760 H Imaging Radiologist's impression: Imaging CT scan - abdomen: Radiologist's impression: EXAMINATION: CT abdomen pelvis w con DATE: 06/14/2024 03:04 INDICATION: Left upper quadrant abdominal pain. TECHNIQUE: Computed tomography (CT) of the abdomen and pelvis was performed with 100 mL Omnipaque 350 intravenous contrast. Automated exposure control and iterative reconstruction technique were employed. The dose-length product was 1276.74 mGy-cm. COMPARISON: None. FINDINGS: The visualized portions of the lung bases demonstrate mild atelectasis. No pleural effusion. The heart size is normal. No pericardial effusion. The liver, gallbladder, spleen, adrenal glands, and right kidney are normal. There are cysts in left kidney measuring up to 8 mm. There is fat stranding and small volume of fluid around the pancreas, consistent with acute interstitial pancreatitis. There are no dilated loops of bowel. The appendix is normal. There are no pathologically enlarged lymph nodes. There is physiologic fluid in the pelvis. There is moderate thoracic spondylosis and mild lumbar spondylosis. IMPRESSION: 1. Acute interstitial pancreatitis. Discharge Plan Discharge Attending physician on discharge: Pj Helms Discharging Clinician: Susu Russell Anticipated Discharge Date/Time: 06/15/24 09:41 Patient Disposition: Home, Self-Care Activity: may shower, unlimited and as tolerated Diet: as tolerated Discharge Instructions: you are being discharged home after treatment for acute pancreatitis * I recommend discontinuing the use of your GLP 1 drug likely of the acute pancreatitis * I encourage oral hydration * advance diet as tolerated small meals * if symptoms return persist or worsen seek medical attention How can you care for yourself at home? ? Keep track of any new symptoms or changes in your symptoms. ? Rest until you feel better. ? Be safe with medicines. Take your medicines exactly as prescribed. Call your doctor if you think you are having a problem with your medicine. ? Do not drive after taking a prescription pain medicine. ? Ensure to follow-up with primary care physician as indicated and provide updated medication list provided to you at discharge. When should you call for help? Call 911 anytime you think you may need emergency care. For example, call if: ? You passed out (lost consciousness). Call your doctor now or seek immediate medical care if: ? You have new symptoms like fever, difficulty breathing, Chest pain, vomiting, or rash. ? You have new or different pain. ? You are confused and are having trouble thinking clearly. ? Your symptoms are getting worse. Watch closely for changes in your health, and be sure to contact your doctor if: ? You do not get better as expected. Patient Instructions: Antibiotic Form, Pancreatitis (DC) Patient Language: Peruvian Stand Alone Forms: General Discharge Information Follow-up/Referrals: Gauri Dale APRN [Primary Care Provider] - 4 Weeks Discharge Medications: Continued multivitamin Tablet 1 tablet PO DAILY polyethylene glycol 3350 [Miralax] 17 gram/dose powder 17 g PO DAILY PRN (Reason: constipation) Qty: 119 0RF docusate calcium 240 mg capsule 240 mg PO DAILY PRN (Reason: stool softener) Qty: 30 0RF omeprazole 20 mg capsule,delayed release(DR/EC) 20 mg PO DAILY Qty: 90 1RF Discontinued Wegovy 1 mg/0.5 mL pen injector 1 mg subcut WEEKLY Qty: 2 0RF Date of admission: 06/14/24 04:57 Primary Care Provider: Gauri Dale Admitting Provider: Marlene Wilson V. Attending physician on admission: Susu Russell Condition: Improved Quality VTE Prophylaxis VTE prophylaxis: pharmacologic ordered -Patient's previous records reviewed on admission -ER notes reviewed in detail on admission -discussed all findings and current treatment plan with patient/Family/POA -Consultations reviewed for recommendations -Patient's disposition for safe discharge discussed with case manager specialist Dictation performed by [employer] direct speech recognition software, therefore electron microscopist variants and typographical errors may occur. Hospitalist MIPS Heart Failure (Exclusion) Patient has history of Heart Transplant or Left Ventricular Assistive Device?: No IF YES, STOP HERE Heart Failure (Qualifier) Patient has current or prior documentation of LVEF less than or equal to 40%, or mod/servere depressed LVSF?: No IF NO, STOP HERE
--- OUTSIDE RECORDS SUMMARY | 2024-06-21 05:09 | XMS_ITS | Encounter Summary ---
Author Organization [facility] Address [address] [place] [address] Phone Care Team Providers Care Shoe Treer Name Role Phone Kael Ernst MD Primary Care Provider [phone] Encounter Details Date Type Department Care Team (Late st Contact Info) Description 05/25/2024 Orders Only [facility] [address] [place] [address] Unknown, Notinfile Social History Tobacco Use Types Packs/Day Years Used Date Smoking Tobacco: Never Smokeless Tobacco: Never Personal Safety Answer Date Recorded Getting School Help Needed Not on file 09/05 Comments Unknown Sex and Gender Information Value Date Recorded Sex Assigned at Not on file Legal Sex Female 4:14 PM DRYER OPERATOR Gender Identity Not on file Sexual Orientation Not on file documented as of this encounter Plan of Treatment Not on file documented as of this encounter Procedures Procedure Name Priority Date/Time Associated Diagnosis Comments SURGICAL PATHOLOGY Routine 05/25/2024 12 :00 AM DRYER OPERATOR documented in this encounter Results * Surgical pathology (05/25/2024 12:00 AM DRYER OPERATOR) Skin, shave biopsy 05/25/2024 05/26/2024 6:28 AM DRYER OPERATOR Narrative 05/26/2024 3:26 PM DRYER OPERATOR EPIC results best viewed via link to PDF [facility] [address] ??[address] [address] ? [email or web address] Note to Patients: ??This report may contain a detailed description of human tissue sent by a health care provider to the laboratory for pathologic evaluation. ??The content of this report is essential for diagnosis and may provide important critical findings. ??This information may be unfamiliar to patients to review without a medical professional present. ?? It is advised that the patient review this report in the presence of a health care provider who can answer questions and explain the details. FINAL REPORT Patient Information: PATIENT NAME: ??SHIRLEY MAYFIELD ? SEX: ??F ? : ??1985 (Age: 38) ? Specimen Information: COLLECTED: ??05/25/2024 ? RECEIVED: ??05/26/2024 ? REPORTED: ??05/26/2024 ? Submitting Physician Information: Raquel Rich, [facility], [address] [place] [address] ??[id number], ? DERMATOPATHOLOGY REPORT RESULTS ?? DIAGNOSIS: SKIN, LEFT MID-UPPER BACK, SHAVE BIOPSY: ? COMPOUND MELANOCYTIC NEVUS yulisa/ajrr By this signature, I attest that the above diagnosis is based upon my personal examination of the slides(and/or other material indicated in the diagnosis). Janes Espino M.D. ?? Report Electronically Reviewed and Signed Out By ??Janes Espino M.D. 05/26/2024 15:26:20 CLINICAL INFORMATION NEOPLASM OF UNCERTAIN BEHAVIOR VS. DN SPECIMEN DATA MICROSCOPIC DESCRIPTION: Enlarged monomorphous melanocytes are arranged as solitary units and nests at the dermo-epidermal junction and as uniform nests, cords and strands within the dermis. (D22.9) GROSS DESCRIPTION: Received in a formalin-containing bottle is a superficial fragment of zeng, variegated, scaly and hair-bearing skin measuring 0.8 by 0.8 by 0.2 cm. The surgical margin is inked blue. The specimen is sectioned into 3 pieces and submitted entirely in a single cassette. Due to shrinkage, measurements may be different than those at time of procedure. exr/mxf ICD-9 A; ZSD.407 ? Clerical Data A; 57204 The characteristics of special, immunohistochemical, and immunofluorescence stains and in-situ hybridization tests performed by the [facility] were deemed acceptable in ongoing quality technician fiberglass measures and in compliance with regulations drawn from the Clinical Laboratory Improvement Act lw3647 (CLIA '88). Control reactions for all stains performed were deemed adequate and appropriate by a pathologist prior to evaluation of patient tissue. Some diagnoses were rendered with the assistance of laboratory-developed tests utilizing analyte-specific reagents; the performance characteristic of these tests were determined by [facility] and are not cleared or approved by the [place] Food an Drug administration. Laboratory developed test may only be performed in a facility that is certified by the [facility] as a high-complexity laboratory under CLIA '88. These tests are used for clinical purposes and are not investigational. us Notinfile Unknown LAB PATHOLOGY ORDERABLES Final Result documented in this encounter Visit Diagnoses Not on filedocumented in this encounter Care Teams Shoe Treer Relationship Specialty Start Date End Date Kael Ernst MD [address] [place] [address] [place] [id number] PCP - General Family Medicine 03/11/24 documented as of this encounter
--- OUTSIDE RECORDS SUMMARY | 2024-06-21 05:09 | XMS_ITS | Encounter Summary ---
Author Organization [facility] Healthcare Address [address] [place] [address] Care Team Providers Care Trauma Manager Name Role Phone Unavailable Primary Care Provider Unavailabl e Encounter Details Date Type Department Care Team (Late st Contact Info) Description 01/24/2014 11:24 AM CDT - 01/24/2014 11:59 PM CDT Hospital Encounter [facility] Aniceto Rivera MD [address] [facility] [address] [place] [address] Acute pharyngitis Social History Tobacco Use Types Packs/Day Years Used Date Smoking Tobacco: Never Assessed Comments Unknown Sex and Gender Information Value Date Recorded Sex Assigned at Not on file Legal Sex Female 4:14 PM NEWSCAST DIRECTOR Gender Identity Not on file Sexual Orientation Not on file documented as of this encounter Plan of Treatment Not on file documented as of this encounter Procedures Procedure Name Priority Date/Time Associated Diagnosis Comments MICROBIOLOGY SUMMARY Routine 01/24/2014 12:00 AM CDT documented in this encounter Results * Microbiology Summary (01/24/2014 12:00 AM CDT) 01/24/2014 Narrative HISTORICAL RESULTS - 01/27/2014 12:39 AM CDT ? [facility] ? MICROBIOLOGY REPORT PATIENT NAME: ??SHIRLEY SAEED ?MED RECORD#: ??[id number] BIRTHDATE: ??1985 ?? AGE: ??28 YRS SEX: F ?PATIENT#: ? [id number] ADMITTING DR: ??TUYET NAVARRETE PA-C ? ATTENDING DR: ? ACCESSION#: ?? [id number] CREATED: ??01/27/14 ?? 0036 ? ADMIT DATE: ?? 01/24/14 ?MICRO - RESPIRATORY THROAT BETA ONLY ?Collected: 01/24/142049 ? Received: 01/25/14 1117 Source: THROAT ?Started: 01/25/14 1141 ?THROAT ?01/26/14 0734 ? HEAVY GROWTH OF GROUP A BETA STREPTOCOCCI ? GROUP A STREP ARE PREDICTABLY SUSCEPTIBLE TO PENICILLIN, ?THE DRUG OF CHOICE. ??THEY ARE ALSO SUSCEPTIBLE TO OTHER ?BETA-LACTAM ANTIBIOTICS. ?? END OF CHART us Historical Provider LAB MICROBIOLOGY - GENERA L ORDERABLES Final Result HISTORICAL RESULTS documented in this encounter Visit Diagnoses Diagnosis Acute pharyngitis documented in this encounter
--- OUTSIDE RECORDS SUMMARY | 2024-06-21 05:09 | XMS_ITS | Encounter Summary ---
Author Organization [facility] Healthcare Address [address] [place] [address] Care Team Providers Care Surgical Elastic Knitter Name Role Phone Kael Ernst MD Primary Care Provider [phone] Encounter Details Date Type Department Care Team (Latest Contact Info) Description 03/11/2024 11:03 AM CDT - 03/11/2024 11:59 PM CDT Hospital Encounter [address] [address] Gastroenteritis Discharge Disposition: Discharge to home or self care Social History Tobacco Use Types Packs/Day Years Used Date Smoking Tobacco: Never Smokeless Tobacco: Never Personal Safety Answer Date Recorded Getting School Help Needed Not on file 09/05 Comments Unknown Sex and Gender Information Value Date Recorded Sex Assigned at Not on file Legal Sex Female 4:14 PM LIEUTENANT BALLISTICS Gender Identity Not on file Sexual Orientation Not on file documented as of this encounter Medications at Time of Discharge ondansetron ODT (ZOFRAN-ODT) 4 mg disintegrating tablet Take 1 tablet (4 mg total) by mouth every 8 (eight) hours as needed for nausea or vomiting 20 tablet 03/11/2024 semaglutide (Wegovy) 2.4 mg/0.75 mL auto-injector Inject 0.75 mL (2.4 mg total) under the skin every 7 days documented as of this encounter Discharge Disposition Disposition Code Departure Means Destination Discharge to home or self care documented in this encounter Miscellaneous Notes * Result Encounter Note - Kiana Saravia LPN - 03/11/2024 11:59 PM CDT Patient notified of result and verbalized understanding. documented in this encounter Plan of Treatment Not on file documented as of this encounter Procedures Procedure Name Priority Date/Time Associated Diagnosis Comments INFLUENZA A/B, RSV, AND COVID-19 PCR Routine 03/11/2024 11:03 AM CDT Gastroenteritis THROAT CULTURE Routine 03/11/2024 11:03 AM CDT Gastroenteritis documented in this encounter Results * Influenza A/B, RSV, and COVID-19 PCR Nasopharyngeal (03/11/2024 11:03 AM CDT) COVID-19 RNA Negative Negative Influenza A RNA Negative Negative [facility] Influenza B RNA Negative Negative [facility] RSV RNA Negative Negative [facility] Comment: Interpretive data: Testing performed by [facility]. This test is performed using the ugichem Xpert Xpress CoV-2/Flu/RSV plus assay. This is a multiplex, real-time reverse transcriptase PCR assay intended for the qualitative detection of nucleic acid from SARS-CoV-2, influenza A, influenza B, and respiratory syncytial virus. This assay has been cleared by the [place] Food and Drug administration. The performance characteristics have been verified by the [facility]. ??Results must be considered in the clinical context, and a negative result does not rule out infection. Interpretive Data last revised 2023 Nasopharyngeal 03/11/2024 11 :03 AM CDT 03/11/2024 3:24 PM CDT Narrative [facility] - 03/11/2024 4:06 PM CDT Is the Patient experiencing symptoms consistent with COVID?->Yes us Christine [facility] LAB MICROBIOLOGY - GENER AL ORDERABLES Final Result [facility] [id number] [place] [address] [place] * Throat culture Throat (03/11/2024 11:03 AM CDT) Report Final Report: No growth of pathogens. Comment:Testing performed by : [facility], [address] [place]., [address] Throat 03/11/2024 11:0 3 AM CDT 03/11/2024 10:36 PM CDT Narrative [facility] - 03/12/2024 5:58 PM CDT Testing performed by [facility] Microbiology Laboratory ([phone]). us Christine [facility] LAB MICROBIOLOGY - [facility] AL ORDERABLES Final Result [facility] [id number] [address] [place] [address] documented in this encounter Visit Diagnoses Diagnosis Gastroenteritis Other and unspecified noninfectious gastroenteritis and colitis documented in this encounter Additional Health Concerns Infection Onset Date Last Indicated Resolved Time COVID: Suspected 03/11/2024 03/11/2024 03/11/2024 4:07 PM CDT documented as of this encounter Care Teams Surgical Elastic Knitter Relationship Specialty Start Date End Date Kael Ernst MD [address] [facility] [address] [address] PCP - General Family Medicine 03/11/24 documented as of this encounter
--- OUTSIDE RECORDS SUMMARY | 2024-06-21 05:09 | XMS_ITS | Referral Summary ---
Author Organization [facility] Virtual Care Address [address] [place] [address] Phone Care Team Providers Care Truck Guard Name Role Phone Kael Ernst MD Primary Care Provider Encounters Date Type Department Care Team Description 05/25/2024 Orders Only [facility] [address] [place] [address] Unknown, Notinfile from Last 3 Months Allergies No known active allergies Medications semaglutide (Wegovy) 2.4 mg/0.75 mL auto-injector Inject 0.75 mL (2.4 mg total) under the skin every 7 days Active ondansetron ODT (ZOFRAN-ODT) 4 mg disintegrating tablet Take 1 tablet (4 mg total) by mouth every 8 (eight) hours as needed for nausea or vomiting 20 tablet Active Active Problems No known active problems Social History Tobacco Use Types Packs/Day Years Used Date Smoking Tobacco: Never Smokeless Tobacco: Never Personal Safety Answer Date Recorded Getting School Help Needed Not on file 09/05 Comments Unknown Sex and Gender Information Value Date Recorded Sex Assigned at Not on file Legal Sex Female 4:14 PM PICKING MACHINE OPERATOR HELPER Gender Identity Not on file Sexual Orientation Not on file Last Filed Vital Signs Vital Sign Reading Time Taken Comments Blood Pressure 125/79 03/11/2024 8:56 AM CDT Pulse 81 03/11/2024 8:56 AM CDT Temperature 36.9 ??C (98.4 ??F) 03/11/2024 8:56 AM CD T Respiratory Rate 16 03/11/2024 8:56 AM CDT Oxygen Saturation 99% 03/11/2024 8:56 AM CDT Inhaled Oxygen Concentration - - Weight 119.7 kg (264 lb) 03/11/2024 8:56 AM CDT Height 172.7 cm (5' 8 ) 03/11/2024 8:56 AM CDT Body Mass Index 40.14 03/11/2024 8:56 AM CDT Plan of Treatment Not on file Procedures Procedure Name Priority Date/Time Associated Diagnosis Comments SURGICAL PATHOLOGY Routine 05/25/2024 12 :00 AM PICKING MACHINE OPERATOR HELPER from Last 3 Months Results * Surgical pathology (05/25/2024 12:00 AM PICKING MACHINE OPERATOR HELPER) Skin, shave biopsy 05/25/2024 05/26/2024 6:28 AM PICKING MACHINE OPERATOR HELPER Narrative 05/26/2024 3:26 PM PICKING MACHINE OPERATOR HELPER [facility] results best viewed via link to PDF [facility] [address] [place] [address]., ??[address] [place] [address] ? [email or web address] Note to Patients: ??This report may contain [...] details. FINAL REPORT Patient Information: PATIENT NAME: ??NAYLA, SHIRLEY R. ? SEX: ??F ? : ??1985 (Age: 38) ? Specimen Information: COLLECTED: ??05/25/2024 ? RECEIVED: ??05/26/2024 ? REPORTED: ??05/26/2024 ? Submitting Physician Information: Raquel Rich, [facility]- [facility], [address] [place] [address] ??[id number], ? DERMATOPATHOLOGY REPORT RESULTS ?? DIAGNOSIS: SKIN, [...] ICD-9 A; ZSD.407 ? Clerical Data A; 00574 The characteristics of special, immunohistochemical, and immunofluorescence stains and in-situ hybridization tests performed by the [facility] were deemed acceptable in ongoing quality inspector measures and in compliance with regulations drawn from the Clinical Laboratory Improvement Act [id number] (CLIA '88). Control reactions for all stains performed were deemed adequate and appropriate by a pathologist prior to evaluation of patient tissue. Some diagnoses were rendered with the assistance of laboratory-developed tests utilizing analyte-specific reagents; the performance characteristic of these tests were determined by [facility] and are not cleared or approved by the [place] Food an Drug administration. Laboratory developed test may only be performed in a facility that is certified by the [facility] as a high-complexity laboratory under CLIA '88. These tests are used for clinical purposes and are not investigational. us Notinfile Unknown LAB PATHOLOGY ORDERABLES Final Result from Last 3 Months Insurance [employer] [facility] Address: [address] [place] [address] [facility] [employer] [employer] [facility] [employer] Care Teams Truck Guard Relationship Specialty Start Date End Date Kael Ernst MD [address] [place] [address] [address] PCP - General Family Medicine 03/11/24
--- OUTSIDE RECORDS SUMMARY | 2024-06-21 05:09 | XMS_ITS | Clinical Summary ---
Author Organization [facility] Virtual Care Address [facility] [place] [address] Phone Care Team Providers Care Medical Doctor Name Role Phone Kael Ernst MD Primary Care Provider [phone] Allergies No known active allergies Medications semaglutide (Wegovy) 2.4 mg/0.75 mL auto-injector Inject 0.75 mL (2.4 mg total) under the skin every 7 days Active ondansetron ODT (ZOFRAN-ODT) 4 mg disintegrating tablet Take 1 tablet (4 mg total) by mouth every 8 (eight) hours as needed for nausea or vomiting 20 tablet Active Active Problems No known active problems Encounters Date Type Department Care Team Description 05/25/2024 Orders Only [facility] [address] [place] [address] Unknown, Notinfile from Last 3 Months Family History Medical History Relation Name Comments Diabetes Maternal Grandfather Relation Name Status Comments Maternal Grandfather Social History Tobacco Use Types Packs/Day Years Used Date Smoking Tobacco: Never Smokeless Tobacco: Never Personal Safety Answer Date Recorded Getting School Help Needed Not on file 09/05 Comments Unknown Sex and Gender Information Value Date Recorded Sex Assigned at Not on file Legal Sex Female 4:14 PM QUALITY ASSURANCE/R&D LAB TECHNICIAN Gender Identity Not on file Sexual Orientation Not on file Obstetrics History Last Filed Vital Signs Vital Sign Reading [...] 03/11/2024 8:56 AM CDT Plan of Treatment Health Maintenance Due Date Last Done Comments Cervical Cancer Screening 1985 Depression Screening 1985 Hepatitis C Screening 1985 Varicella Vaccines (1 of 2 - 13+ 2-dose series) 10/23/2000 Hepatitis B Screening 10/23/2005 Regular Well Visit/Exam 18-64 10/23/2005 DTaP/Tdap/Td Vaccine (2 - Td or Tdap) 11/26/2015 11/25/2005 Influenza Vaccine (#1) 2024 HPV Vaccines Aged Out No longer eligi ble based on patient's age to complete this topic Pneumococcal vaccine <65 Aged Out No longer eligible based on patient's age to complete this topic Procedures Procedure Name Priority Date/Time Associated Diagnosis Comments SURGICAL PATHOLOGY Routine 05/25/2024 12 :00 AM QUALITY ASSURANCE/R&D LAB TECHNICIAN from Last 3 Months Results * Surgical pathology (05/25/2024 12:00 AM QUALITY ASSURANCE/R&D LAB TECHNICIAN) Skin, shave biopsy 05/25/2024 05/26/2024 6:28 AM QUALITY ASSURANCE/R&D LAB TECHNICIAN Narrative 05/26/2024 3:26 PM QUALITY ASSURANCE/R&D LAB TECHNICIAN [facility] results best viewed via link to PDF [facility] [address] [place] [address] , ??[address], [place] [address] ? [email or web address] Note to Patients: ??This report may [...] ??05/26/2024 ? Submitting Physician Information: Raquel Rich, [facility]- [facility], [address] [place] [address] ??[id number], ? DERMATOPATHOLOGY REPORT RESULTS ?? DIAGNOSIS: SKIN, [...] ICD-9 A; ZSD.407 ? Clerical Data A; 72704 The characteristics of special, immunohistochemical, and immunofluorescence stains and in-situ hybridization tests performed by the [facility] were deemed acceptable in ongoing quality engineer medical device measures and in compliance with regulations drawn from the Clinical Laboratory Improvement Act [id number] (CLIA '88). Control reactions for all stains performed were deemed adequate and appropriate by a pathologist prior to evaluation of patient tissue. Some diagnoses were rendered with the assistance of laboratory-developed tests utilizing analyte-specific reagents; the performance characteristic of these tests were determined by [facility] and are not cleared or approved by the [place] Food an Drug administration. Laboratory developed test may only be performed in a facility that is certified by the [facility] as a high-complexity laboratory under CLIA '88. These tests are used for clinical purposes and are not investigational. us Notinfile Unknown LAB PATHOLOGY ORDERABLES Final Result from Last 3 Months Insurance [facility] [employer] [facility]O Address[facility] [address] [address] [place] [phone] [facility] [address] Care Teams Medical Doctor Relationship Specialty Start Date End Date Kael Ernst MD [address] [place] [address] [place] [address] PCP - General Family Medicine 03/11/24
--- OUTSIDE RECORDS SUMMARY | 2024-06-21 05:09 | XMS_ITS | Encounter Summary ---
Author Organization [facility] Healthcare Address [address] [place] [address] Care Team Providers Care Mechanical Engineering Professor Name Role Phone Kael Ernst MD Primary Care Provider [phone] Reason for Visit * Reason Comments Vomiting Patient here for c/o vomiting and diarrhea that started Friday. States during the day she can eat and drink fine, goes to bed at night and wakes up in the middle of the night with vomiting and diarrhea. Encounter Details Date Type Department Care Team (Late st Contact Info) Description 03/11/2024 9:00 AM CDT Office Visit [facility] at [address] [address] Christine Simeon PA [address] [place] [address] [address] [place] [address] Gastroenteritis (Primary Dx) Social History Tobacco Use Types Packs/Day Years Used Date Smoking Tobacco: Never Smokeless Tobacco: Never Personal Safety Answer Date Recorded Getting School Help Needed Not on file 09/05 Comments Unknown Sex and Gender Information Value Date Recorded Sex Assigned at Not on file Legal Sex Female 4:14 PM PRESS TENDER [employer]NADE Gender Identity Not on file Sexual Orientation Not on file documented as of this encounter Last Filed Vital Signs Vital Sign Reading [...] Mass Index 40.14 03/11/2024 8:56 AM CDT documented in this encounter Patient Instructions * Patient Instructions* Christine Simeon PA - 03/11/2024 9:00 AM CDT -plenty of rest and fluids -bland diet -pcp follow up if symptoms persist -ER for new or worsening symptoms as discussed * Attachments The following attachments cannot be sent through Care Everywhere. * Gastroenteritis (AfterCare(R) Instructions(ER/ED)) (Belizean) documented in this encounter Ordered Prescriptions Prescription Sig Dispense Quantity Refills Last Filled Start Date End Date ondansetron ODT (ZOFRAN-ODT) 4 mg disintegrating tablet Take 1 tablet (4 mg total) by mouth every 8 (eight) hours as needed for nausea or vomiting 20 tablet 03/11/2024 documented in this encounter Progress Notes * Christine Simeon PA - 03/11/2024 9:00 AM CDT Images from the original note were not included. Subjective/Objective Patient ID: Shirley Juares is a 38 y.o. female. Chief Complaint Vomiting (Patient here for c/o vomiting and diarrhea that started Friday. States during the day shecan eat and drink fine, goes to bed at night and wakes up in the middle of the night with vomiting and diarrhea.) Pt presents w/ N/V/D x 3 days. Approx 3 episodes of emesis daily and 3 episodes of diarrhea. States symptoms resolve during the day but come back overnight. Reports intermittent abdominal cramping associated with the diarrhea. No abd pain currently. No hematochezia. Last night had chills. No fever. No URI symptoms. No urinary symptoms. No sick contacts. No recent travel. No abnormal or exotic foods. Went to [facility] yesterday for 2L of IVF. Review of Systems All systems reviewed and are negative or non contributory for this patient's presentation today other than as stated in the HPI . Physical Exam Constitutional: General: She is not in acute distress. HENT: Head: Normocephalic and atraumatic. Mouth/Throat: Pharynx: Oropharynx is clear. Eyes: Pupils: Pupils are equal, round, and reactive to light. Cardiovascular: Rate and Rhythm: Normal rate and regular rhythm. Pulmonary: Effort: Pulmonary effort is normal. Breath sounds: Normal breath sounds. Abdominal: General: There is no distension. Palpations: Abdomen is soft. Tenderness: There is no abdominal tenderness. There is no guarding or rebound. Musculoskeletal: General: Normal range of motion. Cervical back: Normal range of motion. Skin: General: Skin is warm and dry. Neurological: General: No focal deficit present. Mental Status: She is alert and oriented to person, place, and time. Psychiatric: Mood and Affect: Mood normal. Behavior: Behavior normal. Vitals: 03/11/24 0856 BP: 125/79 Pulse: 81 Resp: 16 Temp: 36.9 ??C (98.4 ??F) SpO2: 99% Weight: 119.7 kg (264 lb) Height: 172.7 cm (5' 8 ) Assessment/Plan -likely viral gastroenteritis w/ symptoms ongoing x 3 days -vitals stable, no abd ttp, pt well appearing in no distress -will do zofran and continue supportive care -discussed ER precautions for worsening symptoms Diagnoses and all orders for this visit: Gastroenteritis (Primary) - POCT hCG, urine - POCT rapid strep A - Influenza A/B, RSV, and COVID-19 PCR Nasopharyngeal; Future - Throat culture Throat; Future Other orders - ondansetron ODT (ZOFRAN-ODT) 4 mg disintegrating tablet; Take 1 tablet (4 mg total) by mouth every 8 (eight) hours as needed for nausea or vomiting Recent Results (from the past 4 hour(s)) POCT hCG, urine Collection Time: 03/11/24 9:11 AM Result Value Ref Range HCG, ur, POC Negative Negative Lot Number 0 QC Backgroud Clear Acceptable QC Control Line Acceptable POCT rapid strep A Collection Time: 03/11/24 9:31 AM Result Value Ref Range Rapid Strep A, POC Negative Negative Disposition Treatment plan including expectations, follow up, and return precautions discussed with patient/parent, verbalizes understanding. Medication dosage, use, and potential adverse reactions discussed with patient/parent. Advised to follow up with PCP if symptoms do not resolve as expected or sooner if condition worsens. Signs/symptoms warranting ER evaluation reviewed. Patient and/or guardian was given an opportunity to ask questions, questions answered. ERNESTO Gant 03/11/24 9:48 AM Cosigned by Aniceto Skinner MD at 03/11/2024 9:58 AM CDT documented in this encounter Plan of Treatment Not on file documented as of this encounter Procedures Procedure Name Priority Date/Time Associated Diagnosis Comments POCT RAPID STREP Routine 03/11/2024 9:31 AM CDT Gastroenteritis POCT HCG, URINE Routine 03/11/2024 9:11 AM CDT Gastroenteritis documented in this encounter Results * Throat culture Throat (03/11/2024 11:03 AM CDT) Report Final Report: No growth of pathogens. Comment:Testing performed by : [facility], [address] [place]., [address] Throat 03/11/2024 11:0 3 AM CDT 03/11/2024 10:36 PM CDT Narrative BERTRAND LEVY - 03/12/2024 5:58 PM CDT Testing performed by [facility]biology Laboratory ([phone]). us Christine [facility]OZCO LAB MICROBIOLOGY - GENER AL ORDERABLES Final Result BETRRAND LEVY [address] [place] [address] * Influenza A/B, RSV, and COVID-19 PCR Nasopharyngeal (03/11/2024 11:03 AM CDT) [facility] COVID-19 RNA Negative Negative Influenza A RNA Negative Negative [facility] Influenza B RNA Negative Negative [facility] RSV RNA Negative Negative [facility] Comment: Interpretive data: Testing performed by [facility]. This test is performed using the [employer] Xpert Xpress CoV-2/Flu/RSV plus assay. This is a multiplex, real-time reverse transcriptase PCR assay intended for the qualitative detection of nucleic acid from SARS-CoV-2, influenza A, influenza B, and respiratory syncytial virus. This assay has been cleared by the [place] Food and Drug administration. The performance characteristics have been verified by the [facility]. ??Results must be considered in the clinical context, and a negative result does not rule out infection. Interpretive Data last revised 2023 Nasopharyngeal 03/11/2024 11 :03 AM CDT 03/11/2024 3:24 PM CDT Narrative [facility] - 03/11/2024 4:06 PM CDT Is the Patient experiencing symptoms consistent with COVID?->Yes Christine [facility] LAB MICROBIOLOGY - GENER AL ORDERABLES Final Result [facility] [address] [place] [address] * POCT rapid strep A (03/11/2024 9:31 AM CDT) [facility] Rapid Strep A, POC Negative Negative Swab 03/11/2024 9:31 AM CDT Christine OROZCO POINT OF CARE TEST ORDER KM Final Result * POCT hCG, urine (03/11/2024 9:11 AM CDT) [facility] HCG, ur, POC Negative Negative Lot Number 0 QC Backgroud Clear Acceptable QC Control Line Acceptable Urine 03/11/2024 9:11 AM CDT Christine OROZCO POINT OF CARE TEST ORDER KM Final Result documented in this encounter Visit Diagnoses Diagnosis Gastroenteritis- Primary Other and unspecified noninfectious gastroenteritis and colitis Gastroenteritis Other and unspecified noninfectious gastroenteritis and colitis documented in this encounter Historical Medications * This list may reflect changes made after this encounter. semaglutide (Wegovy) 2.4 mg/0.75 mL auto-injector Inject 0.75 mL (2.4 mg total) under the skin every 7 days added in this encounter Care Teams Mechanical Engineering Professor Relationship Specialty Start Date End Date Kael Ernst MD [address] [facility] [place] [address] [place] [address] [place] [id number] PCP - General Family Medicine 03/11/24 documented as of this encounter
--- OUTSIDE RECORDS SUMMARY | 2024-06-21 05:09 | XMS_ITS | Encounter Summary ---
Author Organization [facility] Address [address] [facility] [facility] [address] [place] [address] Care Team Providers Care Oxyacetylene Welder Name Role Phone Vivienne Briscoe NP Primary Care Provider [phone] Reason for Visit * Reason Comments Annual Exam work physical Encounter Details Date Type Department Care Team (Late st Contact Info) Description 04/28/2017 4:00 PM PARKING LOT SIGNALER Office Visit [facility] [address] [place] [address] [place] [address] Luis Alberto Salamanca NP [address] [place] [address] School physical exam (Primary Dx) Social History Tobacco Use Types Packs/Day Years Used Date Smoking Tobacco: Never Smokeless Tobacco: Never Comments Unknown Sex and Gender Information Value Date Recorded Sex Assigned at Not on file Legal Sex Female 4:14 PM PARKING LOT SIGNALER Gender Identity Not on file Sexual Orientation Not on file documented as of this encounter Last Filed Vital Signs Vital Sign Reading Time Taken Comments Blood Pressure 110/80 04/28/2017 4:14 PM PARKING LOT SIGNALER Pulse 106 04/28/2017 4:14 PM PARKING LOT SIGNALER Temperature 37.7 ??C (99.9 ??F) 04/28/2017 4:14 PM CS T Respiratory Rate 17 04/28/2017 4:14 PM PARKING LOT SIGNALER Oxygen Saturation 98% 04/28/2017 4:14 PM PARKING LOT SIGNALER Inhaled Oxygen Concentration - - Weight 132.9 kg (293 lb) 04/28/2017 4:14 PM PARKING LOT SIGNALER Height 172.7 cm (5' 8 ) 04/28/2017 4:14 PM PARKING LOT SIGNALER Body Mass Index 44.55 04/28/2017 4:14 PM PARKING LOT SIGNALER documented in this encounter Patient Instructions * Patient Instructions* Luis Alberto Salamanca NP - 04/28/2017 4:00 PM PARKING LOT SIGNALER Shirley Juares is a 31 y.o. female. Is cleared to participate in school/sports without restrictions. ING LOT SIGNALER documented in this encounter Progress Notes * Luis Alberto Salamanca NP - 04/28/2017 4:00 PM CST Subjective Patient ID: Shirley Juares is a 31 y.o. female. Annual Exam (work physical) Healthy female presents for school physical no pertinent medical history otherwise healthy and no known allergies. Review of Systems Constitutional: Negative for chills, fatigue and fever. HENT: Negative for congestion, sinus pressure and sore throat. Eyes: Negative for pain and discharge. Respiratory: Negative for cough, chest tightness, shortness of breath and wheezing. Cardiovascular: Negative for chest pain. Gastrointestinal: Negative for abdominal pain, diarrhea and nausea. Endocrine: Negative for polyuria. Genitourinary: Negative for frequency. Musculoskeletal: Negative for arthralgias and back pain. Skin: Negative for rash. Allergic/Immunologic: Negative for food allergies. Neurological: Negative for dizziness and headaches. Psychiatric/Behavioral: Negative for agitation. All other systems reviewed and are negative. Objective Physical Exam Constitutional: She is oriented to person, place, and time. She appears well- developed and well-nourished. HENT: Head: Normocephalic. Right Ear: External ear normal. Left Ear: External ear normal. Mouth/Throat: Oropharynx is clear and moist. Eyes: Conjunctivae and EOM are normal. Pupils are equal, round, and reactive to light. Neck: Normal range of motion. Neck supple. Cardiovascular: Normal rate, regular rhythm and normal heart sounds. Pulmonary/Chest: Effort normal and breath sounds normal. Abdominal: Soft. Bowel sounds are normal. Musculoskeletal: Normal range of motion. Neurological: She is alert and oriented to person, place, and time. Skin: Skin is warm and dry. No rash noted. No erythema. Psychiatric: She has a normal mood and affect. Nursing note and vitals reviewed. Vitals: 04/28/17 1614 BP: 110/80 BP Location: Left arm Patient Position: Sitting Pulse: 106 Resp: 17 Temp: 37.7 ??C (99.9 ??F) TempSrc: Oral SpO2: 98% Weight: 132.9 kg (293 lb) Height: 172.7 cm (5' 8 ) Assessment/Plan Diagnoses and all orders for this visit: 1. School physical exam (Primary) Shirley Juares is a 31 y.o. female. Is cleared to participate in school/sports without restrictions. No notes on file ING LOT SIGNALER documented in this encounter Plan of Treatment Not on file documented as of this encounter Visit Diagnoses Diagnosis School physical exam- Primary Health examination of defined subpopulation documented in this encounter Care Teams Oxyacetylene Welder Relationship Specialty Start [place] [address] [address] PCP - General Internal Medicine 04/15/17 03/10/24 documented as of this encounter
== END 2024-06-15 12:46 | disposition home or self-care (01) | DRG 440 ==
LOC: ANHED 06-14 04:49 → ANH3MEDSUR 06-14 05:48
PROVIDERS: Admitting Provider Internal Medicine; Emergency Provider Emergency Medicine; PCP Nurse Practitioner Family; Visit Provider Nurse Practitioner Family
DX: K85.80 Other acute pancreatitis without necrosis or infection (principal); E86.0 Dehydration; E66.01 Morbid (severe) obesity due to excess calories; Z68.38 Body mass index [BMI] 38.0-38.9, adult; E80.6 Other disorders of bilirubin metabolism; R74.01 Elevation of levels of liver transaminase levels
CPT/HCPCS: 36415; 74177; 80053; 81001; 82248; 83690; 83735; 84703; 85025; 87086; 96374; 96375; 99285; A9270; J0696; J1650; J2270; J2405; J7030; J7120; Q9967

== ENCOUNTER 2024-06-22 15:13 | Emergency (ER) | payer OTHER, SELFPAY ==
[2024-06-22 15:44] VITALS: BP 131/86; PULSE 92; RESP 16; TEMP 36.2; O2SAT 100
--- NOTE | 2024-06-22 16:34 | ED_ITS ---
HPI - URI/Sore Throat General Chief Complaint: Upper Respiratory Infection Stated Complaint: Sore throat Time Seen by Provider: 06/22/24 16:20 Source: patient, RN notes reviewed and old records reviewed Mode of arrival: ambulatory Limitations: no limitations History of Present Illness HPI Narrative: 38 year old female who presents to [facility] care with complaints of sore throat, cough and body aches for the past 3 days. She states that cough and body aches has improved but sore throat remains. Patient reports that she had 101F fever last night. She has been taking Ibuprofen for her symptoms.Patient reports that she was just recently treated for pancreatitis MD elicited complaint: fever, cough, sore throat and other (body aches) Onset (ago): day(s) (3) Pain scale (0-10): 5 Able to tolerate fluids by mouth: Yes Treatments prior to arrival: ibuprofen Related Data Home Medications ?Medication ?Instructions ?Recorded ?Confirmed ?Last Taken ?Type multivitamin 1 tablet PO DAILY 03/07/23 06/22/24 06/13/24 History Allergies Allergy/AdvReac Type Severity Reaction Status Date / Time No Known Allergies Allergy Verified 06/22/24 15:48 Review of Systems Review of Systems: CONSTITUTIONAL: Reports malaise, chills, sweats, or fever. EYES: Denies visual changes, redness, or discharge. ENT: Reports rhinorrhea, congestion, no sinus pain,no otalgia and positive for sore throat. CARDIOVASCULAR: Denies chest pain, palpitations, or edema. RESPIRATORY: Reports cough.? Denies dyspnea. GASTROINTESTINAL: Denies abdominal pain, nausea, vomiting, diarrhea presently was recently treated for pancreatitis thought related to weight loss drug she had been taking SKIN: Denies rash or itching. MUSCULOSKELETAL: Reports myalgia. NEUROLOGIC: Denies headache. All systems reviewed & are unremarkable except as noted in HPI and below PMFSH Past Medical History Medical History (Updated 06/26/24 @ 14:47 by Lilo Dorsey NP) Pancreatitis Morbid obesity with BMI of 50.0-59.9, adult and not yet delivered Surgical History Surgical History [place] teeth extracted August 2022 Family History Family History Father Alcoholism Lung cancer Sibling Depression Anxiety Colon polyp Other Unknown family medical history Social History Social History Smoking status: Never smoker Second hand tobacco smoke exposure: No Alcohol intake: current Alcohol use details: social, 2-3 per month Substance use: never Substance use type: does not use Do You Feel Safe in your Home?: Yes Lack of Transportation: No Lack of Food: Never True Current Housing: I Have Housing Concerned About Future Housing: No Difficulty Paying Gas/Electric Bills: No Difficulty Paying for Meds: No Currently Unemployed: No Education: Bachelor's Degree Difficulty w/ Childcare or Family Care: No Gender identity (if verbalized by the patient): Female Spiritual care concerns: No Comments At time of signature, agree with nursing past medical, surgical, social and family history. There is no relevant family history pertinent to the presenting complaint Exam 2 Narrative: GENERAL: Well-appearing, well-nourished, and in no acute distress. HEAD: Normocephalic EYES: PERRLA, conjunctivae clear ENT: Nares clear, turbinates edematous and erythematous, clear discharge. Mucous membranes moist. TM pearly khan with dull light reflex bilaterally; no tragal tenderness. Oropharynx erythematous without lesions. Tonsils red enlarged and throat without exudate, no drooling, no hoarseness, no trismus, uvula midline red and swollen.painful swallowing NECK: Supple. No lymphadenopathy CHEST: Clear to auscultation, breath sounds equal. No wheezing, rhonchi, rales, or stridor. No respiratory distress, speaks in full sentences.SAO2 100% on room air HEART: Regular rate and rhythm. No murmur heard. SKIN: Warm, dry, no rash. NEURO: Alert and oriented x3. PSYCH: Normal mood and affect Course Course Emergency Course: Patient is aware of diagnosis, understands and agrees to treatment plan.? Anticipatory guidance given.? Patient agrees to follow-up as directed and is aware of reasons to seek care at the emergency department. Portions of this record may have been created with voice recognition software Level of Care: Express Care Visit Vital Signs Vital signs: Vital Signs Temperature 36.2 C L 06/22/24 15:44 Pulse Rate 92 06/22/24 15:44 Respiratory Rate 16 06/22/24 15:44 Blood Pressure 131/86 06/22/24 15:44 Pulse Oximetry 100 06/22/24 15:44 Temperature 36.2 C L 06/22/24 15:44 Pulse Rate 92 06/22/24 15:44 Respiratory Rate 16 06/22/24 15:44 Blood Pressure 131/86 06/22/24 15:44 Pulse Oximetry 100 06/22/24 15:44 Reviewed MDM - URI/Sore Throat MDM Narrative Medical decision making narrative: Differential diagnosis considered: Owens virus, strep pharyngitis, allergic rhinitis, upper respiratory tract infection, sinusitis, rhinosinusitis, nasopharyngitis. viral pharyngitis, otitis media, otitis externa, pneumonia, bronchitis, viral cough syndrome, viral syndrome, and influenza.? Exam findings show no acute concerns or changes; patient is non-toxic appearing and is in no distress.? Patient is appropriate for outpatient treatment and follow-up. Differential Diagnosis Differential diagnosis: Likely upper respiratory infection, sinusitis, viral infection, pharyngitis and other (strep pharyngitis) Medical Records Attestation: I reviewed the patient's medical records. Lab Data Attestation: I reviewed the patient's lab results. Lab results narrative: strep screen positive Labs: Lab Results 06/22/24 Range/Units 16:40 POC Grp A Strep Screen Positive (Negative) Critical Care Time Critical Care Time Critical Care Time: No Discharge Plan Discharge Clinical Impression: Acute streptococcal pharyngitis Patient Disposition: Home, Self-Care Condition: Stable Instructions: Antibiotic Form, Strep Throat (ED) Additional Instructions: Increase fluids especially juices and water [id number] cough and cold medicine of your choice for your symptoms Zyrtec Claritin or Kathi daily Tylenol or ibuprofen for any fever pain heat to the face 20-30 minutes 4-6 times a day for pain You tested positive for Group A strep . Take the entire course of antibiotics. Throw away your current toothbrush and begin using a new toothbrush in 48 hours in order to prevent re-infection. Sanitize all reusable water bottles . Do not share items with others. Salt water gargles may alleviate some of the throat discomfort. You can take Tylenol or ibuprofen per the package instructions for pain/fever. If your symptoms persist, change or worsen significantly before you can contact your personal physician then please, without delay, go to the emergency department for further evaluation. Follow-up with PCP in 7-10 days or sooner if needed Follow up with PCP soon in regards to your blood pressure which is elevated above threshold for referral. Blood pressure above 120/80 may indicate pre- hypertension. 131/86 Patient Language: Danish Prescriptions: New amoxicillin 500 mg capsule 500 mg PO Q8H Qty: 30 0RF No Action multivitamin Tablet 1 tablet PO DAILY polyethylene glycol 3350 [Miralax] 17 gram/dose powder 17 g PO DAILY PRN (Reason: constipation) Qty: 119 0RF omeprazole 20 mg capsule,delayed release(DR/EC) 20 mg PO DAILY Qty: 90 1RF Follow-up/Referrals: Gauri Dale APRN [Primary Care Provider] - Time of Disposition: 16:42 Quality Nellie Coma Scale Eyes: Open Verbal: Oriented and Alert Motor: Follows Commands Procious Coma Total Score: 15
[2024-06-22 16:42] LABS: EDSTREPNEGPOS1 Positive (Negative)
== END 2024-06-22 16:56 | disposition home or self-care (01) ==
PROVIDERS: Emergency Provider Registered Nurse; PCP Nurse Practitioner Family
DX: J02.0 Streptococcal pharyngitis (principal); E66.01 Morbid (severe) obesity due to excess calories; Z68.37 Body mass index [BMI] 37.0-37.9, adult
CPT/HCPCS: 87880; 99213; G0463

== ENCOUNTER 2024-08-10 08:09 | Emergency (ER) | payer OTHER, SELFPAY ==
--- NOTE | 2024-08-10 08:11 | ED.URI ---
HPI - URI/Sore Throat General Chief Complaint: Upper Respiratory Infection Stated Complaint: Strep Symptoms Source: patient and RN notes reviewed Mode of arrival: ambulatory Limitations: no limitations History of Present Illness HPI Narrative: Patient is a 38-year-old female who presents to the [facility] with multiple complaints. Patient states that she developed body aches and increased fatigue Rula evening. She woke up yesterday with a sore throat, cough, congestion, and chills. She endorses a frequent nonproductive cough that is occasionally productive with yellow sputum. Denies chest pain or shortness of breath. She states that she had a fever yesterday. She is currently afebrile. Patient also endorses mild headache. Her respirations are unlabored. Related Data Home Medications ?Medication ?Instructions ?Recorded ?Confirmed ?Last Taken ?Type multivitamin 1 tablet PO DAILY 03/07/23 07/16/24 06/13/24 History Allergies Allergy/AdvReac Type Severity Reaction Status Date / Time No Known Allergies Allergy Verified 07/16/24 10:17 Review of Systems Review of Systems: CONSTITUTIONAL: Reports fever, chills, and sweats. EYES: Denies visual changes, redness, or discharge. ENT: Denies otalgia but reports sore throat and congestion. CARDIOVASCULAR: Denies chest pain, palpitations, or edema. RESPIRATORY: Reports cough but denies dyspnea. GASTROINTESTINAL: Denies abdominal pain, nausea, vomiting, or diarrhea. GENITOURINARY: Denies dysuria or hematuria. SKIN: Denies rash or itching. MUSCULOSKELETAL: Denies back pain, joint pain, but reports myalgia. NEUROLOGIC: Reports headache but denies numbness or weakness. Pertinent positives per HPI. [facility] Past Medical History Medical History half-way use of drug Pancreatitis and not yet delivered Surgical History Surgical History [place] teeth extracted August 2022 Family History Family History Father Alcoholism Lung cancer Sibling Depression Anxiety Colon polyp Other Unknown family medical history Social History Social History Smoking status: Never smoker Second hand tobacco smoke exposure: No Alcohol intake: current Alcohol use details: social, 2-3 per month Substance use: never Substance use type: does not use Do You Feel Safe in your Home?: Yes Lack of Transportation: No Lack of Food: Never True Current Housing: I Have Housing Concerned About Future Housing: No Difficulty Paying Gas/Electric Bills: No Difficulty Paying for Meds: No Currently Unemployed: No Education: Bachelor's Degree Difficulty w/ Childcare or Family Care: No Living arrangements: with family Occupation/Education: occupation Gender identity (if verbalized by the patient): Female Spiritual care concerns: No Agree to blood products: Yes Comments At the time of my signature, I reviewed and agree with the nursing past medical, surgical, social, and family history. There is no relevant family history pertinent to the patient complaint. Exam Narrative: GENERAL: This is a well-nourished, well-developed patient, in no apparent distress. HEAD: normocephalic, atraumatic. EYES: Sclera clear/white. Vision is grossly intact. EARS: External ears normal. Hearing grossly intact. NOSE: External nose normal with no obvious nasal discharge, nares without redness, no rhinorrhea. THROAT: Mucous membranes moist, oropharyngeal erythema without exudate or ulceration. NECK: Neck supple, non-tender without lymphadenopathy, masses or thyromegaly. CARDIOVASCULAR: Regular rate and rhythm without murmurs, gallops, or rubs. RESPIRATORY: Clear to auscultation. Breath sounds equal bilaterally. No wheezes, rales, or rhonchi. GASTROINTESTINAL: Abdomen soft, non-tender, nondistended. Bowel sounds are active. No hepato-splenomegaly, or palpable masses. No guarding. SKIN: warm, intact with no suspicious lesions or rash, good texture and turgor. NEURO: awake, alert, and oriented to person, place and time. There were no obvious focal neurologic abnormalities. Course Course Level of Care: [facility] Care Visit Vital Signs Vital signs: Vital Signs Temperature 98.1 F 08/10/24 08:24 Pulse Rate 100 08/10/24 08:24 Respiratory Rate 16 08/10/24 08:24 Blood Pressure 123/82 08/10/24 08:24 Pulse Oximetry 100 08/10/24 08:24 Temperature 98.1 F 08/10/24 08:24 Pulse Rate 100 02/18/25 08:24 Respiratory Rate 16 08/10/24 08:24 Blood Pressure 123/82 08/10/24 08:24 Pulse Oximetry 100 08/10/24 08:24 Reviewed MDM - URI/Sore Throat MDM Narrative Medical decision making narrative: After 24 hours on antibiotics throw tooth brush away and start using a new one. Increase your Vitamin C. Do not share drinks. Take Motrin alternating with Tylenol for pain and/or fever alternating every 4 hours. Increase fluids, avoid caffeine. Take a probiotic daily or eat a low sugar yogurt while taking the antibiotic. Follow up with Primary provider if not getting better this week Patient offered Tamiflu, but declined. Treated strep with Amoxicillin. Differential Diagnosis Differential diagnosis: Likely upper respiratory infection, viral infection, influenza, pharyngitis and other (strep, covid) Lab Data Attestation: I reviewed the patient's lab results. Labs: Lab Results 08/10/24 Range/Units 08:19 POC Influenza A Ag Positive (Negative) POC Influenza B Ag Negative (Negative) POC SARS CoV-2 Ag Negative (Negative) POC Grp A Strep Screen Positive (Negative) Critical Care Time Critical Care Time Critical Care Time: No Discharge Plan Discharge Clinical Impression: Strep pharyngitis, Influenza A Patient Disposition: Home, Self-Care Condition: Stable Instructions: Antibiotic Form, Strep Throat (ED), Influenza (ED) Additional Instructions: After 24 hours on antibiotics throw tooth brush away and start using a new one. Increase your Vitamin C. Do not share drinks. Take Motrin alternating with Tylenol for pain and/or fever alternating every 4 hours. Increase fluids, avoid caffeine. Take a probiotic daily or eat a low sugar yogurt while taking the antibiotic. Follow up with Primary provider if not getting better this week Patient Language: Monegasque Prescriptions: New amoxicillin 500 mg capsule 500 mg PO Q12H 10 Days Qty: 20 0RF No Action multivitamin Tablet 1 tablet PO DAILY omeprazole 20 mg capsule,delayed release(DR/EC) 20 mg PO DAILY Qty: 90 1RF polyethylene glycol 3350 [Miralax] 17 gram/dose powder 17 g PO DAILY PRN (Reason: constipation) Qty: 119 0RF Follow-up/Referrals: Gauri Dale APRN [Primary Care Provider] - Stand Alone Forms: Work/School Release IP Time of Disposition: 08:36
[2024-08-10 08:24] VITALS: BP 123/82; PULSE 100; RESP 16; TEMP 36.7; O2SAT 100
[2024-08-10 08:37] LABS: EDCOVIDSCREEN Negative (Negative); EDINFLUASCREEN Positive (Negative); EDINFLUBSCREEN Negative (Negative); EDSTREPNEGPOS1 Positive (Negative)
== END 2024-08-10 08:41 | disposition home or self-care (01) ==
PROVIDERS: Emergency Provider Nurse Practitioner; PCP Nurse Practitioner Family
DX: J02.0 Streptococcal pharyngitis (principal); J10.1 Influenza due to other identified influenza virus with other respiratory manifestations; Z20.822 Contact with and (suspected) exposure to COVID-19
CPT/HCPCS: 87426; 87804; 87880; 99213; G0463

== ENCOUNTER 2025-04-22 08:59 | Outpatient (CLI) | payer OTHER, SELFPAY ==
--- OUTSIDE RECORDS SUMMARY | 2025-04-22 09:21 | XMS_ITS | Clinical Summary ---
Author Organization [facility] Virtual Care Address [address] [place] [id number] Phone Care Team Providers Care Prize Jacker Name Role Phone Kael Ernst MD Primary Care Provider [phone] Allergies No known active allergies Medications semaglutide (Wegovy) 2.4 mg/0.75 mL auto-injector Inject 0.75 mL (2.4 mg total) under the skin every 7 days Active ondansetron ODT (ZOFRAN-ODT) 4 mg disintegrating tablet Take 1 tablet (4 mg total) by mouth every 8 (eight) hours as needed for nausea or vomiting 20 tablet Active Active Problems No known active problems Family History Medical History Relation Name Comments [...] on file Legal Sex Female 4:14 PM [employer] Gender Identity Not on file Sexual Orientation Not on file Obstetrics History Last Filed Vital Signs Vital Sign Reading Time Taken Comments Blood Pressure 125/79 03/11/2024 8:56 AM CDT Pulse 81 03/11/2024 8:56 AM CDT Temperature 36.9 C (98.4 F) 03/11/2024 8:56 AM CDT Respiratory Rate 16 03/11/2024 8:56 AM CDT Oxygen Saturation 99% 03/11/2024 8:56 AM CDT Inhaled Oxygen Concentration - - Weight 119.7 kg (264 lb) 03/11/2024 8:56 AM CDT Height 172.7 cm (5' 8) 03/11/2024 8:56 AM CDT Body Mass Index 40.14 03/11/2024 8:56 AM CDT Plan of Treatment Health Maintenance Due Date Last Done Comments Cervical Cancer Screening 1987 Depression Screening 1987 Hepatitis C Screening 1987 Varicella Vaccines (1 of 2 - 13+ 2-dose series) 10/23/2000 Hepatitis B Screening 10/23/2005 Regular Well Visit/Exam 18-64 10/23/2005 HPV Vaccines (1 - 3-dose SCD M series) 10/23/2014 DTaP/Tdap/Td Vaccine (2 - Td or Tdap) 11/26/2015 11/25/2005 Influenza Vaccine (#1) 2025 Pneumococcal vaccine <65 Aged Out No longer eligible based on patient's age to complete this topic Insurance [facility] CHOICE PLUS [facility] CHOICE PLUS Care Teams Prize Jacker Relationship Specialty Start Date End Date Kael Ernst MD [address] [place] [address] [place] [address] PCP - General Family Medicine 03/11/24
[2025-04-22 14:19] LABS: Hematocrit 45.6 % (37.0-47.0); Hemoglobin 14.3 g/dL (12.0-15.0); Mean Corpuscular HGB Conc 31.4 g/dl (32-36); Mean Corpuscular Hemoglobin 29.1 pg (26-34); Mean Corpuscular Volume 92.9 fl (80-100); Platelet Count Result 380 k/mm3 (150-375); Red Blood Count 4.91 M/mm3 (4.2-5.4); White Blood Count 6.9 K/mm3 (4.5-10.0)
[2025-04-22 14:26] LABS: Alanine Aminotransferase 21 U/L (6-35); Albumin Level 4.3 g/dL (3.5-5.1); Alkaline Phosphatase 81 U/L (38-126); Anion Gap 9 mmol/L (4-12); Aspartate Amino Transferase 69 U/L (14-36); Bilirubin,Total 0.7 mg/dL (0.2-1.3); Blood Urea Nitrogen 16 mg/dL (7-17); Calcium 8.7 mg/dL (8.4-10.2); Carbon Dioxide 27 mmol/L (22-30); Chloride 104 mmol/L (98-107); Cholesterol 208 mg/dL (0-200); Estimated Glomerular Filt Rate > 60; Glucose 75 mg/dL (65-110); HDL Direct 41 mg/dL; Magnesium 2.1 mg/dL (1.6-2.3); Potassium 4.1 mmol/L (3.4-5.0); Sodium 140 mmol/L (137-145); Total Protein 8.0 g/dL (6.3-8.2); Triglycerides 110 mg/dL (<150)
[2025-04-22 14:34] LABS: Iron 84 ug/dL (37-170)
[2025-04-22 14:49] LABS: Percent Iron Saturation 27 % (20-50)
[2025-04-22 15:15] LABS: Ferritin 21.20 ng/mL (6.24-137)
[2025-04-22 15:30] LABS: Hemoglobin A1C 4.8 % (<5.7)
[2025-04-22 15:37] LABS: Vitamin B12 599.0 pg/mL (239-931)
== END 2025-04-22 09:00 | disposition home or self-care (01) ==
LOC: ANHGOSHLAB 08:59
PROVIDERS: PCP Nurse Practitioner Family; Visit Provider Nurse Practitioner Family
DX: Z13.1 Encounter for screening for diabetes mellitus (principal); F50.819 Binge eating disorder, unspecified; E66.01 Morbid (severe) obesity due to excess calories; E78.2 Mixed hyperlipidemia; E61.1 Iron deficiency; Z79.899 Other long term (current) drug therapy
CPT/HCPCS: 36415; 80053; 80061; 82607; 82728; 82746; 83036; 83540; 83550; 83735; 85027